=== PATIENT | male | born 1960 | race Caucasian/White ===

== ENCOUNTER 2019-06-25 07:52 | Outpatient (CLI) | payer BC ==
--- NOTE | 2019-06-25 08:25 | ULT ---
US Hepatic Doppler: 06/25/2019 12:00 AM CLINICAL HISTORY: Cirrhosis and portal hypertension. STUDY: Right upper quadrant ultrasound of liver. TECHNIQUE: Multiplanar grayscale and color Doppler images were obtained in a ultrasound of the right upper quadrant of the abdomen. Spectral analysis of the Doppler waveforms of the hepatic and splenic vessels were performed. COMPARISON: None. FINDINGS: Liver: Size: Normal. Echogenicity: Normal. Contour: Nodular consistent with cirrhosis. Mass: None. Bile ducts: No intrahepatic or extrahepatic biliary dilatation. Common bile duct measures 5 mm. Gallbladder: Normal. Pancreas: Head and body appear normal; tail obscured by bowel gas. Hepatic veins: Normal waveforms. Normal directional flow. Portable veins: Normal waveforms. Normal directional flow. Hepatic arteries: Normal waveforms. Normal directional flow. Splenic vein: Normal waveforms. Normal directional flow. Splenic artery: Normal waveforms. Normal directional flow. The spleen is normal in echogenicity without focal lesions and measures 17.8cm in length. IMPRESSION: Cirrhosis with splenomegaly
== END 2019-06-25 07:53 | disposition home or self-care (01) ==
LOC: BICULT 07:52
DX: K74.69 Other cirrhosis of liver (principal); E88.81 Metabolic syndrome and other insulin resistance; E13.9 Other specified diabetes mellitus without complications; R79.89 Other specified abnormal findings of blood chemistry; D73.2 Chronic congestive splenomegaly
CPT/HCPCS: 76705

== ENCOUNTER 2020-01-18 17:24 | Emergency (ER) | payer BC ==
[2020-01-18 18:50] LABS: ALT (SGPT) 24 U/L (8-55); AST (SGOT) 38 U/L (5-34); Albumin 3.5 g/dL (3.5-5.0); Alkaline Phosphatase 82 U/L (40-110); Anion Gap 14 mmol/L (10-20); BUN (Urea Nitrogen) 50 mg/dL (8.4-25.7); Bilirubin, Total 0.6 mg/dL (0.2-1.2); Calc. Creatinine Clearance 0 mL/min (70-130); Carbon Dioxide 24 mmol/L (22-29); Chloride 101 mmol/L (98-107); Estimated GFR-MDRD 25; Glucose 188 mg/dL (70-105); Magnesium 2.2 mg/dL (1.6-2.6); Potassium 4.7 mmol/L (3.5-5.1); Protein, Total 6.5 g/dL (6.0-8.3); Sodium 134 mmol/L (136-145)
[2020-01-18 19:52] LABS: Hemoglobin 8.9 g/dL (14.0-18.0); Mean Corpuscular HGB CONC 32.6 g/dL (32.0-36.0); Mean Corpuscular Hemoglobin 30.7 pg (27.0-31.0); Mean Corpuscular Volume 93.9 fL (78.0-98.0); Mean Platelet Volume 11.3 fL (7.4-10.4); Platelet Count 77 thou/uL (130-400); RBC Distribution Width 16.1 % (11.5-14.5); White Blood Cell (WBC) Count 3.7 thou/uL (4.8-10.8)
[2020-01-18 20:04] LABS: Band 2 % (5-11); Hypochromia SLIGHT = 6-15 cells (100X) (0-5/hpf); INR-International Normal Ratio 1.2; Lymphocytes 10 % (21-51); MDiff Complete? YES; Monocytes 11 % (0-10); Neutrophil 77 % (42-75); Platelet Morphology Comment Appears Decreased; Prothrombin Time 14.8 sec (12.0-14.7)
[2020-01-18 20:05] LABS: PTT 32.1 sec (22.9-36.1)
== END 2020-01-18 20:58 | disposition home or self-care (01) ==
LOC: ERS 17:24
DX: K71.7 Toxic liver disease with fibrosis and cirrhosis of liver (principal); T42.6X5A Adverse effect of other antiepileptic and sedative-hypnotic drugs, initial encounter; E11.9 Type 2 diabetes mellitus without complications; I12.0 Hypertensive chronic kidney disease with stage 5 chronic kidney disease or end stage renal disease; N18.6 End stage renal disease; Z79.4 Long term (current) use of insulin; Z79.82 Long term (current) use of aspirin; Z79.899 Other long term (current) drug therapy
CPT/HCPCS: 36415; 80053; 82140; 83735; 85025; 85610; 85730; 99284

== ENCOUNTER 2020-12-24 09:06 | Outpatient (CLI) | payer BC | END 2020-12-24 09:07 | disposition home or self-care (01) | LOC: BICULT 09:06 | PROVIDERS: ATTEND Internal Medicine Gastroenterology | DX: K22.70 Barrett's esophagus without dysplasia (principal); I85.00 Esophageal varices without bleeding; D64.9 Anemia, unspecified; K74.60 Unspecified cirrhosis of liver; R16.1 Splenomegaly, not elsewhere classified | CPT/HCPCS: 76705 ==

== ENCOUNTER 2021-10-26 09:25 | Outpatient (CLI) | payer BC | END 2021-10-26 09:26 | disposition home or self-care (01) | LOC: BICRAD 09:25 | PROVIDERS: ATTEND Physician Assistant Medical | DX: J90 Pleural effusion, not elsewhere classified (principal); N17.9 Acute kidney failure, unspecified; K74.60 Unspecified cirrhosis of liver; J98.11 Atelectasis | CPT/HCPCS: 36415; 71046; 80053; 82105; 85025; 85610 ==

== ENCOUNTER 2022-03-11 21:33 | Observation (INO) | payer BC ==
[2022-03-11 22:43] LABS: Hemoglobin 8.2 g/dL (14.0-18.0); Mean Corpuscular HGB CONC 31.4 g/dL (32.0-36.0); Mean Corpuscular Hemoglobin 27.8 pg (27.0-31.0); Mean Corpuscular Volume 88.6 fL (78.0-98.0); RBC Distribution Width 14.1 % (11.5-14.5); Red Blood Cell (RBC) Count 2.96 mill/uL (4.70-6.10); White Blood Cell (WBC) Count 6.1 thou/uL (4.8-10.8)
[2022-03-11 23:00] LABS: ALT (SGPT) 38 U/L (8-55); AST (SGOT) 62 U/L (5-34); Albumin 3.2 g/dL (3.4-4.8); Alkaline Phosphatase 82 U/L (40-110); Anion Gap 12 mmol/L (10-20); BUN (Urea Nitrogen) 44 mg/dL (8.4-25.7); Bilirubin, Total 0.9 mg/dL (0.2-1.2); Calc. Creatinine Clearance 0 mL/min (70-130); Calcium 8.5 mg/dL (7.8-10.44); Carbon Dioxide 27 mmol/L (23-31); Chloride 100 mmol/L (98-107); Estimated GFR 32; Globulin 2.8 g/dL (2.4-3.5); Glucose 171 mg/dL (80-115); Sodium 135 mmol/L (136-145)
[2022-03-11 23:05] LABS: Band 16 % (5-11); Lymphocytes 6 % (21-51); MDiff Complete? YES; Mean Platelet Volume 11.6 fL (7.4-10.4); Monocytes 12 % (0-10); Neutrophil 66 % (42-75); Platelet Count 65 thou/uL (130-400); Platelet Morphology Comment Appears Decreased; Schistocytes SLIGHT = 2-5 cells (100X) (0-1/hpf); Tear Drops SLIGHT = 2-5 cells (100X) (0-1/hpf)
[2022-03-12] MEDS ORDERED: cefTRIAXone\\ROCEPHIN 1 GM VIAL ONE (00:32)
[2022-03-12] MEDS ORDERED: Azithromycin 500 MG in Sodium Chloride 0.9% 250 ML 250 ML IVPB SCH (01:00)
[2022-03-12] MEDS ORDERED: Acetaminophen 325 MG TAB PO PRN (01:00)
[2022-03-12] MEDS ORDERED: Ondansetron PF 4 MG/2 ML Vial IVP PRN (01:00)
[2022-03-12] MEDS ORDERED: Ondansetron ODT 4 MG TAB SL PRN (01:00)
[2022-03-12] MEDS ORDERED: Azithromycin 500 MG VIAL ONE (01:10)
[2022-03-12] MEDS ORDERED: Dextrose 50% Abboject 50 ML SYRINGE SLOW IVP PRN (01:36)
[2022-03-12] MEDS ORDERED: Dextrose 5% in Water 1,000 ML IV PRN (01:36)
[2022-03-12] MEDS ORDERED: Senokot S 8.6-50 MG TAB PO PRN (01:37)
[2022-03-12] MEDS ORDERED: Furosemide 40 MG/4 ML VIAL SLOW IVP SCH (01:45)
[2022-03-12 01:47] LABS: SARS-CoV-2 NAA Rapid Test Not Detected (NotDetected)
[2022-03-12] MEDS: Acetaminophen 325 MG TAB PO PRN ×2 (02:33→20:46)
[2022-03-12 02:55] VITALS: BMI 37.0
[2022-03-12 04:40] LABS: ALT (SGPT) 32 U/L (8-55); AST (SGOT) 49 U/L (5-34); Albumin 2.9 g/dL (3.4-4.8); Alkaline Phosphatase 70 U/L (40-110); Anion Gap 13 mmol/L (10-20); BUN (Urea Nitrogen) 41 mg/dL (8.4-25.7); Bilirubin, Total 0.8 mg/dL (0.2-1.2); Calc. Creatinine Clearance 55 mL/min (70-130); Calcium 8.1 mg/dL (7.8-10.44); Carbon Dioxide 25 mmol/L (23-31); Chloride 99 mmol/L (98-107); Estimated GFR 32; Globulin 2.6 g/dL (2.4-3.5); Glucose 192 mg/dL (80-115); Magnesium 1.8 mg/dL (1.6-2.6); Potassium 3.8 mmol/L (3.5-5.1); Protein, Total 5.5 g/dL (5.8-8.1); Sodium 133 mmol/L (136-145)
[2022-03-12 05:44] LABS: Band 24 % (5-11); Elliptocytes SLIGHT = 2-5 cells (100X) (0-1/hpf); Hemoglobin 7.2 g/dL (14.0-18.0); Lymphocytes 2 % (21-51); MDiff Complete? YES; Mean Corpuscular HGB CONC 30.4 g/dL (32.0-36.0); Mean Corpuscular Hemoglobin 26.9 pg (27.0-31.0); Mean Corpuscular Volume 88.6 fL (78.0-98.0); Mean Platelet Volume 8.3 fL (7.4-10.4); Monocytes 12 % (0-10); Neutrophil 62 % (42-75); Platelet Count 54 thou/uL (130-400); Platelet Morphology Comment Appears Decreased; RBC Distribution Width 14.1 % (11.5-14.5); Red Blood Cell (RBC) Count 2.66 mill/uL (4.70-6.10); Schistocytes SLIGHT = 2-5 cells (100X) (0-1/hpf); Tear Drops SLIGHT = 2-5 cells (100X) (0-1/hpf); White Blood Cell (WBC) Count 5.5 thou/uL (4.8-10.8)
[2022-03-12] MEDS: HumaLOG 300 UNITS/3 ML VIAL SC PRN ×3 (06:27→17:13)
[2022-03-12 07:32] LABS: Bacteria/HPF None Seen HPF (None Seen); Bilirubin Negative (Negative); Blood, Urine Negative (Negative); Clarity Clear (Clear); Glucose, Urine (Dipstick) Normal (Negative); Ketone, Urine Negative (Negative); Leukocyte Negative Leu/uL (Negative); Nitrite Negative (Negative); Protein, Urine (Dipstick) Negative (Neg-Trace); RBC/HPF 0-3 HPF (0-3); Squamous Epithelial 0-3 HPF (0-3); Urobilinogen Normal mg/dL (Less than 2); WBC/HPF 0-3 HPF (0-3)
[2022-03-12] MEDS: Rifaximin 550 MG TAB PO SCH (09:25)
[2022-03-12] MEDS: Spironolactone 25 MG TAB PO SCH (14:40)
[2022-03-12] MEDS: Furosemide 40 MG/4 ML VIAL SLOW IVP SCH (14:40)
[2022-03-12] MEDS: Gabapentin 100 MG CAP PO SCH (20:47)
[2022-03-12] MEDS: cefTRIAXone\\ROCEPHIN 1 GM in Sodium Chloride 0.9% 100 ML IVPB SCH (21:31)
[2022-03-13] MEDS: Azithromycin 500 MG in Sodium Chloride 0.9% 250 ML 250 ML IVPB SCH (02:27)
[2022-03-13] MEDS: Furosemide 40 MG/4 ML VIAL SLOW IVP SCH (09:37)
[2022-03-13] MEDS: Rifaximin 550 MG TAB PO SCH (09:37)
[2022-03-13] MEDS: Spironolactone 25 MG TAB PO SCH (09:44)
[2022-03-13] MEDS: Gabapentin 100 MG CAP PO SCH (20:44)
[2022-03-13] MEDS: cefTRIAXone\\ROCEPHIN 1 GM in Sodium Chloride 0.9% 100 ML IVPB SCH (21:49)
[2022-03-14] MEDS: Azithromycin 500 MG in Sodium Chloride 0.9% 250 ML 250 ML IVPB SCH (02:54)
[2022-03-14 05:11] LABS: Anion Gap 15 mmol/L (10-20); BUN (Urea Nitrogen) 38 mg/dL (8.4-25.7); Calc. Creatinine Clearance 70 mL/min (70-130); Calcium 8.2 mg/dL (7.8-10.44); Carbon Dioxide 22 mmol/L (23-31); Chloride 102 mmol/L (98-107); Estimated GFR 42; Glucose 188 mg/dL (80-115); Potassium 3.8 mmol/L (3.5-5.1); Sodium 135 mmol/L (136-145)
[2022-03-14 06:35] LABS: Band 10 % (5-11); Elliptocytes SLIGHT = 2-5 cells (100X) (0-1/hpf); Eosinophils 3 % (0-10); Hemoglobin 7.4 g/dL (14.0-18.0); Lymphocytes 9 % (21-51); MDiff Complete? YES; Mean Corpuscular HGB CONC 30.4 g/dL (32.0-36.0); Mean Corpuscular Volume 88.9 fL (78.0-98.0); Monocytes 14 % (0-10); Neutrophil 64 % (42-75); Platelet Count 67 thou/uL (130-400); Red Blood Cell (RBC) Count 2.75 mill/uL (4.70-6.10); Schistocytes SLIGHT = 2-5 cells (100X) (0-1/hpf); Tear Drops SLIGHT = 2-5 cells (100X) (0-1/hpf); White Blood Cell (WBC) Count 2.8 thou/uL (4.8-10.8)
[2022-03-14 07:53] VITALS: BP 95/55; TEMP 97.8
[2022-03-14] MEDS: Rifaximin 550 MG TAB PO SCH (09:09)
[2022-03-14] MEDS: Spironolactone 25 MG TAB PO SCH (09:09)
[2022-03-14] MEDS: Furosemide 40 MG/4 ML VIAL SLOW IVP SCH (09:09)
== END 2022-03-14 11:13 | disposition home or self-care (01) ==
LOC: ERS 21:33 → 2NO 03-12 00:49
PROVIDERS: ADMIT Student in an Organized Health Care Education/Training Program; ATTEND Student in an Organized Health Care Education/Training Program
DX: J18.9 Pneumonia, unspecified organism (principal); I12.9 Hypertensive chronic kidney disease with stage 1 through stage 4 chronic kidney disease, or unspecified chronic kidney disease; E11.22 Type 2 diabetes mellitus with diabetic chronic kidney disease; N18.9 Chronic kidney disease, unspecified; N17.9 Acute kidney failure, unspecified; D63.1 Anemia in chronic kidney disease; K74.60 Unspecified cirrhosis of liver; R18.8 Other ascites; K76.6 Portal hypertension; I25.10 Atherosclerotic heart disease of native coronary artery without angina pectoris; E87.1 Hypo-osmolality and hyponatremia; Z79.4 Long term (current) use of insulin; Z79.82 Long term (current) use of aspirin; Z79.84 Long term (current) use of oral hypoglycemic drugs; Z79.899 Other long term (current) drug therapy; Z95.1 Presence of aortocoronary bypass graft; Z20.822 Contact with and (suspected) exposure to COVID-19
CPT/HCPCS: 36415; 36416; 71045; 80048; 80053; 81001; 83605; 83735; 83880; 84145; 85025; 87040; 93005; 96374; 96375; 96376; G0378; J0456; J0696; J1815; J1940; J3490; J7050; U0002

== ENCOUNTER 2022-09-20 08:51 | Outpatient (CLI) | payer BC | END 2022-09-20 08:52 | disposition home or self-care (01) | LOC: BICULT 08:51 | PROVIDERS: ATTEND Physician Assistant Medical | DX: D64.9 Anemia, unspecified (principal); K74.60 Unspecified cirrhosis of liver; R18.8 Other ascites; J90 Pleural effusion, not elsewhere classified | CPT/HCPCS: 76705 ==

== ENCOUNTER 2023-04-04 09:15 | Outpatient (CLI) | payer BC | END 2023-04-04 09:16 | disposition home or self-care (01) | LOC: ULT 09:15 | PROVIDERS: ATTEND Internal Medicine Gastroenterology | DX: K74.60 Unspecified cirrhosis of liver (principal); R16.1 Splenomegaly, not elsewhere classified; R18.8 Other ascites | CPT/HCPCS: 76705 ==

== ENCOUNTER 2023-07-15 06:19 | Day surgery (SDC) | payer BC ==
[2023-07-14 11:03] VITALS: BMI 41.3
[2023-07-15] MEDS ORDERED: Lidocaine 2% PF 5 ML VIAL ONE (06:57)
[2023-07-15] MEDS ORDERED: PROPOFOL 80 ML ONE (06:57)
[2023-07-15] MEDS ORDERED: Glycopyrrolate 0.2 MG/ML 5 ML SYRINGE ONE (07:31)
[2023-07-15] MEDS ORDERED: ePHEDrine Sulfate 50 MG/10 ML VIAL ONE (07:34)
[2023-07-15] MEDS ORDERED: PROPOFOL 20 ML ONE (08:41)
== END 2023-07-15 10:10 | disposition home or self-care (01) ==
LOC: SDC 06:19
PROVIDERS: ATTEND Internal Medicine Gastroenterology
PROC: 0DBL8ZZ Excision of Transverse Colon, Via Natural or Artificial Opening Endoscopic (ICD-10-PCS; principal; 2023-07-15)
PROC: 0W3P8ZZ Control Bleeding in Gastrointestinal Tract, Via Natural or Artificial Opening Endoscopic (ICD-10-PCS; principal; 2023-07-15)
PROC: 06L38CZ Occlusion of Esophageal Vein with Extraluminal Device, Via Natural or Artificial Opening Endoscopic (ICD-10-PCS; principal; 2023-07-15)
DX: D12.2 Benign neoplasm of ascending colon (principal); K57.30 Diverticulosis of large intestine without perforation or abscess without bleeding; K31.819 Angiodysplasia of stomach and duodenum without bleeding; I85.00 Esophageal varices without bleeding; K74.60 Unspecified cirrhosis of liver; D64.9 Anemia, unspecified; N28.9 Disorder of kidney and ureter, unspecified; E11.42 Type 2 diabetes mellitus with diabetic polyneuropathy; G47.33 Obstructive sleep apnea (adult) (pediatric); I25.10 Atherosclerotic heart disease of native coronary artery without angina pectoris; I25.2 Old myocardial infarction; Z79.899 Other long term (current) drug therapy
CPT/HCPCS: 36416; 88305; J2001; J2704

== ENCOUNTER 2023-07-27 07:37 | Day surgery (SDC) | payer BC ==
[2023-07-27] MEDS ORDERED: Lidocaine 1% PF 5 ML VIAL ONE (08:18)
[2023-07-27] MEDS ORDERED: Sodium Bicarbonate 2.5 MEQ/5 ML SDV ONE (08:18)
[2023-07-27 08:25] LABS: INR-International Normal Ratio 1.2; PTT 32.3 sec (22.9-36.1); Prothrombin Time 15.4 sec (12.0-14.7)
[2023-07-27 09:58] VITALS: BMI 40.6
[2023-07-27 10:00] VITALS: BP 96/58; TEMP 98.8
[2023-07-27 11:48] LABS: RBC Count-Automated (BF) 359 /cu.mm; WBC/Nucleated-Auto (BF) 458 /cu.mm
[2023-07-27 11:55] LABS: BF Color Yellow; Body Fluid Source Paracentesis Fluid; Clarity Hazy (Clear); Tube # EDTA
[2023-07-27 13:57] LABS: BF Segmented Neutrophils 2 %; Cell Count Non Hematic 73 %; Lymphocytes 25 %
[2023-07-27] MEDS ORDERED: FLU VACC QS2023-24(6MOS UP)/PF 60 MCG/0.5 ML SYRINGE IM ONE (14:00)
== END 2023-07-27 10:15 | disposition home or self-care (01) ==
LOC: ULT 07:37
PROVIDERS: ATTEND Physician Assistant Medical
PROC: 0W9G3ZZ Drainage of Peritoneal Cavity, Percutaneous Approach (ICD-10-PCS; principal; 2023-07-27)
DX: R18.8 Other ascites (principal); K31.819 Angiodysplasia of stomach and duodenum without bleeding; I85.00 Esophageal varices without bleeding; I25.10 Atherosclerotic heart disease of native coronary artery without angina pectoris; I10 Essential (primary) hypertension; I25.2 Old myocardial infarction; E11.9 Type 2 diabetes mellitus without complications; K21.9 Gastro-esophageal reflux disease without esophagitis; Z79.899 Other long term (current) drug therapy; Z95.1 Presence of aortocoronary bypass graft; Z79.84 Long term (current) use of oral hypoglycemic drugs
CPT/HCPCS: 36415; 49083; 82042; 84155; 85060; 85610; 85730; 87070; 87205; 89051

== ENCOUNTER 2023-09-09 10:13 | Inpatient (IN) | payer BC ==
[2023-09-09] MEDS ORDERED: Pantoprazole 40 MG VIAL ONE ×2 (10:31→10:52)
[2023-09-09] MEDS ORDERED: Sodium Chloride 0.9% 100 ML ONE (10:52)
[2023-09-09] MEDS ORDERED: cefTRIAXone (ROCEPHIN) 2 GM VIAL ONE (10:52)
[2023-09-09] MEDS ORDERED: Octreotide Acetate 500 MCG/ML VIAL ONE (10:52)
[2023-09-09] MEDS ORDERED: NOREPINEPHRINE 8 MG/250 ML-D5W 250 ML ONE (10:58)
[2023-09-09] MEDS ORDERED: EPINEPHrine 1 MG/10 ML Abboject SYRINGE ONE (10:58)
[2023-09-09] MEDS ORDERED: Octreotide Acetate 1,250 MCG in Sodium Chloride 0.9% 250 ML 250 ML IVPB SCH (11:00)
[2023-09-09] MEDS ORDERED: Ketamine In 0.9 % NaCl 50 MG/5 ML SYRINGE ONE (11:02)
[2023-09-09 11:14] LABS: #Basophils 0.1 thou/uL (0.0-0.2); #Eosinphils 0.1 thou/uL (0.0-0.7); #Monocytes 1.9 thou/uL (0.11-0.59); #Neutrophils 8.6 thou/uL (1.40-6.50); %Basophils 0.5 % (0.0-1.0); %Eosinophils 0.9 % (0.0-10.0); %Monocytes 16.2 % (0.0-10.0); %Neutrophils 73.7 % (42.0-75.0); Hematocrit 27.5 % (42.0-52.0); Hemoglobin 8.6 g/dL (14.0-18.0); Mean Corpuscular HGB CONC 31.3 g/dL (32.0-36.0); Mean Corpuscular Hemoglobin 32.1 pg (27.0-31.0); Mean Corpuscular Volume 102.6 fl (78.0-98.0); Mean Platelet Volume 12.5 fL (7.4-10.4); Platelet Count 153 10x3/uL (130-400); RBC Distribution Width 17.9 % (11.5-14.5); Red Blood Cell (RBC) Count 2.68 mill/uL (4.70-6.10); White Blood Cell (WBC) Count 11.7 10x3/uL (4.8-10.8)
[2023-09-09] MEDS ORDERED: Rocuronium Bromide 10 MG/ML (10ML VIAL) ONE ×2 (11:14→13:55)
[2023-09-09] MEDS ORDERED: Fentanyl CADD 100 ML IV SCH (11:15)
[2023-09-09] MEDS ORDERED: fentaNYL 50 mcg/mL 1 mL Vial ONE (11:17)
[2023-09-09 11:36] LABS: INR-International Normal Ratio 1.4; PTT 30.8 sec (22.9-36.1); Prothrombin Time 17.2 sec (12.0-14.7)
[2023-09-09 11:43] LABS: ALT (SGPT) 17 U/L (8-55); AST (SGOT) 34 U/L (5-34); Albumin 2.7 g/dL (3.4-4.8); Alkaline Phosphatase 54 U/L (40-110); Anion Gap 14 mmol/L (10-20); BUN (Urea Nitrogen) 53 mg/dL (8.4-25.7); Calc. Creatinine Clearance 0 mL/min (70-130); Calcium 8.5 mg/dL (7.8-10.44); Carbon Dioxide 26 mmol/L (23-31); Chloride 104 mmol/L (98-107); Estimated GFR 32; Globulin 2.4 g/dL (2.4-3.5); Glucose 199 mg/dL (80-115); Lipase 54 U/L (8-78); Potassium 5.9 mmol/L (3.5-5.1); Protein, Total 5.1 g/dL (5.8-8.1); Sodium 138 mmol/L (136-145)
[2023-09-09 12:05] LABS: Actual Bicarbonate (HCO3a) 25.1 mEq/L (22-28); Analyzer IN Cardio ER; Base Excess (BEa) 0.5 mEq/L (-2.0 to +3.0); CO2 Tension 39.8 mmHg (35.0-45.0); Calcium, Ionized (arterial) 1.05 mmol/L (1.12-1.30); Carboxyhemoglobin (COHb) 0.3 gm% (0.0-3.0); Hematocrit-ABG 28 % (42.0-52.0); Hemoglobin (Hb) 9.4 g/dL (14.0-18.0); O2 Tension (PaO2), arterial 321.7 mmHg (> 80.0); pH, Arterial 7.417 (7.35-7.45)
[2023-09-09 12:12] LABS: Potassium - ABG Lab 6.62 mmol/L (3.70-5.30); Puncture Site Left Radial
[2023-09-09] MEDS ORDERED: Pantoprazole 80 MG in Sodium Chloride 0.9% 100 ML IVPB SCH (13:00)
[2023-09-09] MEDS ORDERED: Ventilator Sedation Protocol 1 EACH FS SCH (13:15)
[2023-09-09] MEDS ORDERED: Fentanyl BOLUS 250 ML IVPB PRN (13:30)
[2023-09-09] MEDS ORDERED: DISCONTINUE PREVIOUS NARCOTIC PAIN MEDICATIONS AND BENZODIAZEPINES FS SCH (13:30)
[2023-09-09] MEDS ORDERED: Propofol BOLUS 1,000 MG/100 ML VIAL IV PRN (13:30)
[2023-09-09] MEDS ORDERED: ePHEDrine Sulfate 50 MG/10 ML VIAL ONE (13:37)
[2023-09-09 13:44] LABS: Bacteria/HPF None Seen HPF (None Seen); Bilirubin Negative (Negative); Blood, Urine Negative (Negative); CAUTI Indications for Culture Acute Hematuria; Clarity Clear (Clear); Glucose, Urine (Dipstick) 150 mg/dL (Negative); Ketone, Urine Negative (Negative); Leukocyte Negative Leu/uL (Negative); Nitrite Negative (Negative); Protein, Urine (Dipstick) Negative (Neg-Trace); RBC/HPF None Seen HPF (0-3); Specific Gravity, Urine 1.019 (1.002-1.036); Squamous Epithelial 0-3 HPF (0-3); Urobilinogen Normal mg/dL (Less than 2); WBC/HPF 0-3 HPF (0-3)
[2023-09-09 13:46] LABS: Urine Culture Reflex No No
[2023-09-09 14:23] LABS: #Monocytes 0.8 thou/uL (0.11-0.59); %Basophils 0.3 % (0.0-1.0); %Eosinophils 0.2 % (0.0-10.0); %Monocytes 8.1 % (0.0-10.0); %Neutrophils 84.8 % (42.0-75.0); Hematocrit 32.8 % (42.0-52.0); Hemoglobin 10.6 g/dL (14.0-18.0); Mean Corpuscular HGB CONC 32.3 g/dL (32.0-36.0); Mean Corpuscular Hemoglobin 31.2 pg (27.0-31.0); Mean Platelet Volume 12.3 fL (7.4-10.4); RBC Distribution Width 18.7 % (11.5-14.5); White Blood Cell (WBC) Count 9.5 10x3/uL (4.8-10.8)
[2023-09-09 14:26] LABS: Platelet Count 95 10x3/uL (130-400)
[2023-09-09 14:39] LABS: Mean Corpuscular Volume 96.5 fl (78.0-98.0)
[2023-09-09] MEDS: cefTRIAXone\\ROCEPHIN 1 GM in Sodium Chloride 0.9% 100 ML IVPB SCH (15:00)
[2023-09-09] MEDS: Morphine 2 MG/ML VIAL SLOW IVP PRN (15:20)
[2023-09-09] MEDS: Propofol 1,000 MG/100 ML VIAL IV PRN (15:20)
[2023-09-09] MEDS: Sodium Chloride 0.9% 1,000 ML IV SCH (15:26)
[2023-09-09 16:13] LABS: #Monocytes 0.8 thou/uL (0.11-0.59); #Neutrophils 6.7 thou/uL (1.40-6.50); %Basophils 0.4 % (0.0-1.0); %Eosinophils 0.1 % (0.0-10.0); %Lymphocytes 5.2 % (21.0-51.0); %Monocytes 9.7 % (0.0-10.0); Hematocrit 30.1 % (42.0-52.0); Mean Corpuscular HGB CONC 33.2 g/dL (32.0-36.0); Mean Corpuscular Hemoglobin 31.1 pg (27.0-31.0); Mean Platelet Volume 12.9 fL (7.4-10.4); RBC Distribution Width 18.9 % (11.5-14.5); Red Blood Cell (RBC) Count 3.22 mill/uL (4.70-6.10)
[2023-09-09 16:16] LABS: Mean Corpuscular Volume 93.5 fl (78.0-98.0); Platelet Count 92 10x3/uL (130-400)
[2023-09-09 16:31] LABS: Lactic Acid 1.5 mmol/L (0.5-2.2)
[2023-09-09] MEDS ORDERED: LOKELMA 10 GM PACKET PER TUBE SCH (17:00)
[2023-09-09 17:22] LABS: Albumin 2.9 g/dL (3.4-4.8); Anion Gap 16 mmol/L (10-20); Calcium 7.9 mg/dL (7.8-10.44); Carbon Dioxide 23 mmol/L (23-31); Chloride 105 mmol/L (98-107); Globulin 2.3 g/dL (2.4-3.5); Glucose 232 mg/dL (80-115); Protein, Total 5.2 g/dL (5.8-8.1); Sodium 137 mmol/L (136-145)
[2023-09-09] MEDS: Sodium Polystyrene Sulfonate 15 GM (60 mL) BOT PR SCH (17:22)
[2023-09-09 17:23] LABS: ALT (SGPT) 19 U/L (8-55); AST (SGOT) 34 U/L (5-34); Alkaline Phosphatase 65 U/L (40-110); BUN (Urea Nitrogen) 58 mg/dL (8.4-25.7); Bilirubin, Total 1.8 mg/dL (0.2-1.2); Calc. Creatinine Clearance 0 mL/min (70-130); Critical Call Chemistry ICU.VW @ 1649; Estimated GFR 35; Magnesium 1.8 mg/dL (1.6-2.6); Potassium 6.5 mmol/L (3.5-5.1)
[2023-09-09] MEDS: Lorazepam 2 MG/ML VIAL SLOW IVP PRN (18:02)
[2023-09-09] MEDS: FLU VACC QS2023-24(6MOS UP)/PF 60 MCG/0.5 ML SYRINGE IM ONE (18:30)
[2023-09-09] MEDS ORDERED: NOREPINEPHRINE 8 MG/250 ML-D5W 250 ML IVPB SCH (19:45)
[2023-09-09 20:53] LABS: Hematocrit 27.3 % (42.0-52.0); Hemoglobin 9.1 g/dL (14.0-18.0)
[2023-09-09 22:58] LABS: Anion Gap 14 mmol/L (10-20); BUN (Urea Nitrogen) 54 mg/dL (8.4-25.7); Calc. Creatinine Clearance 62 mL/min (70-130); Calcium 8.1 mg/dL (7.8-10.44); Carbon Dioxide 24 mmol/L (23-31); Chloride 108 mmol/L (98-107); Estimated GFR 33; Glucose 189 mg/dL (80-115); Potassium 4.9 mmol/L (3.5-5.1); Sodium 141 mmol/L (136-145)
[2023-09-10 04:04] LABS: #Monocytes 0.9 thou/uL (0.11-0.59); #Neutrophils 6.2 thou/uL (1.40-6.50); %Basophils 0.3 % (0.0-1.0); %Eosinophils 0.5 % (0.0-10.0); %Monocytes 11.7 % (0.0-10.0); Hematocrit 26.9 % (42.0-52.0); Hemoglobin 8.8 g/dL (14.0-18.0); Mean Corpuscular HGB CONC 32.7 g/dL (32.0-36.0); Mean Corpuscular Hemoglobin 31.4 pg (27.0-31.0); Mean Corpuscular Volume 96.1 fl (78.0-98.0); Mean Platelet Volume 13.8 fL (7.4-10.4); White Blood Cell (WBC) Count 7.6 10x3/uL (4.8-10.8)
[2023-09-10 04:10] LABS: Platelet Count 64 10x3/uL (130-400)
[2023-09-10 04:14] LABS: INR-International Normal Ratio 1.4; Prothrombin Time 16.8 sec (12.0-14.7)
[2023-09-10 04:29] LABS: ALT (SGPT) 15 U/L (8-55); AST (SGOT) 27 U/L (5-34); Albumin 2.7 g/dL (3.4-4.8); Alkaline Phosphatase 62 U/L (40-110); Anion Gap 16 mmol/L (10-20); BUN (Urea Nitrogen) 54 mg/dL (8.4-25.7); Bilirubin, Total 1.3 mg/dL (0.2-1.2); Calc. Creatinine Clearance 61 mL/min (70-130); Calcium 8.2 mg/dL (7.8-10.44); Carbon Dioxide 22 mmol/L (23-31); Chloride 107 mmol/L (98-107); Estimated GFR 33; Globulin 2.2 g/dL (2.4-3.5); Glucose 213 mg/dL (80-115); Potassium 4.9 mmol/L (3.5-5.1); Protein, Total 4.9 g/dL (5.8-8.1); Sodium 140 mmol/L (136-145)
[2023-09-10 07:59] LABS: Actual Bicarbonate (HCO3a) 22.6 mEq/L (22-28); Base Excess (BEa) -0.9 mEq/L (-2.0 to +3.0); CO2 Tension 32.8 mmHg (35.0-45.0); Calcium, Ionized (arterial) 1.08 mmol/L (1.12-1.30); Hematocrit-ABG 27 % (42.0-52.0); Hemoglobin (Hb) 9.3 g/dL (14.0-18.0); Potassium - ABG Lab 4.49 mmol/L (3.70-5.30); pH, Arterial 7.456 (7.35-7.45)
[2023-09-10 08:04] LABS: O2 Tension (PaO2), arterial 57.1 mmHg (> 80.0); Puncture Site LBA
[2023-09-10] MEDS: Furosemide 40 MG (4 mL) VIAL SLOW IVP SCH (10:36)
[2023-09-10] MEDS: Octreotide Acetate 1,250 MCG in Sodium Chloride 0.9% 250 ML 250 ML IVPB SCH (10:36)
[2023-09-10] MEDS: Pantoprazole 40 MG VIAL IVP SCH (20:34)
[2023-09-11 05:07] LABS: #Eosinphils 0.1 thou/uL (0.0-0.7); #Monocytes 0.6 thou/uL (0.11-0.59); %Basophils 0.2 % (0.0-1.0); %Eosinophils 2.7 % (0.0-10.0); %Lymphocytes 7.5 % (21.0-51.0); %Monocytes 14.7 % (0.0-10.0); %Neutrophils 74.7 % (42.0-75.0); Hematocrit 23.8 % (42.0-52.0); Hemoglobin 7.9 g/dL (14.0-18.0); Mean Corpuscular HGB CONC 33.2 g/dL (32.0-36.0); Mean Corpuscular Hemoglobin 31.9 pg (27.0-31.0); Mean Platelet Volume 12.6 fL (7.4-10.4); RBC Distribution Width 19.5 % (11.5-14.5); Red Blood Cell (RBC) Count 2.48 mill/uL (4.70-6.10)
[2023-09-11 05:10] LABS: Platelet Count 53 10x3/uL (130-400)
[2023-09-11 05:27] LABS: Anion Gap 12 mmol/L (10-20); BUN (Urea Nitrogen) 62 mg/dL (8.4-25.7); Calc. Creatinine Clearance 60 mL/min (70-130); Carbon Dioxide 24 mmol/L (23-31); Chloride 108 mmol/L (98-107); Estimated GFR 32; Glucose 192 mg/dL (80-115); Sodium 140 mmol/L (136-145)
[2023-09-11 08:17] LABS: Base Excess (BEa) -0.2 mEq/L (-2.0 to +3.0); CO2 Tension 31.7 mmHg (35.0-45.0); Carboxyhemoglobin (COHb) 0.7 gm% (0.0-3.0); Hematocrit-ABG 26 % (42.0-52.0); Hemoglobin (Hb) 8.8 g/dL (14.0-18.0); O2 Tension (PaO2), arterial 64.9 mmHg (> 80.0); pH, Arterial 7.479 (7.35-7.45)
[2023-09-11 08:18] LABS: ALV-art Gradient 180.675 mmHg (0-20); Analyzer IN Cardio OR; Calcium, Ionized (arterial) 1.05 mmol/L (1.12-1.30); Potassium - ABG Lab 3.83 mmol/L (3.70-5.30); Puncture Site RRA
[2023-09-11] MEDS: Furosemide 40 MG (4 mL) VIAL SLOW IVP SCH (20:46)
[2023-09-12 04:38] LABS: #Eosinphils 0.1 thou/uL (0.0-0.7); #Monocytes 0.5 thou/uL (0.11-0.59); #Neutrophils 2.5 thou/uL (1.40-6.50); %Basophils 0.3 % (0.0-1.0); %Eosinophils 4.1 % (0.0-10.0); %Lymphocytes 7.7 % (21.0-51.0); %Monocytes 14.2 % (0.0-10.0); %Neutrophils 73.1 % (42.0-75.0); Hematocrit 25.1 % (42.0-52.0); Mean Corpuscular HGB CONC 31.9 g/dL (32.0-36.0); Mean Corpuscular Hemoglobin 31.4 pg (27.0-31.0); Mean Corpuscular Volume 98.4 fl (78.0-98.0); Mean Platelet Volume 13.3 fL (7.4-10.4); RBC Distribution Width 18.5 % (11.5-14.5); Red Blood Cell (RBC) Count 2.55 mill/uL (4.70-6.10); White Blood Cell (WBC) Count 3.4 10x3/uL (4.8-10.8)
[2023-09-12 04:43] LABS: Platelet Count 55 10x3/uL (130-400)
[2023-09-12 04:59] LABS: Anion Gap 16 mmol/L (10-20); BUN (Urea Nitrogen) 62 mg/dL (8.4-25.7); Calc. Creatinine Clearance 56 mL/min (70-130); Calcium 8.2 mg/dL (7.8-10.44); Carbon Dioxide 25 mmol/L (23-31); Chloride 106 mmol/L (98-107); Estimated GFR 30; Glucose 183 mg/dL (80-115); Potassium 3.7 mmol/L (3.5-5.1); Sodium 143 mmol/L (136-145)
[2023-09-12 07:19] LABS: Actual Bicarbonate (HCO3a) 25.2 mEq/L (22-28); Base Excess (BEa) 1.7 mEq/L (-2.0 to +3.0); Calcium, Ionized (arterial) 1.08 mmol/L (1.12-1.30); Carboxyhemoglobin (COHb) 0.8 gm% (0.0-3.0); Hematocrit-ABG 27 % (42.0-52.0); Hemoglobin (Hb) 9.1 g/dL (14.0-18.0); O2 Tension (PaO2), arterial 72.5 mmHg (> 80.0); Potassium - ABG Lab 3.78 mmol/L (3.70-5.30); pH, Arterial 7.475 (7.35-7.45)
[2023-09-12 07:20] LABS: Puncture Site LBA
[2023-09-12] MEDS ORDERED: Dextrose 5% in Water 1,000 ML IV PRN (09:15)
[2023-09-12] MEDS ORDERED: Glucagon 1 MG/ML KIT IM PRN (09:15)
[2023-09-12] MEDS ORDERED: Dextrose 50% Abboject 50 ML SYRINGE IVP PRN (09:15)
[2023-09-12] MEDS: Insulin Glargine 30 UNITS/0.3 ML VIAL SC SCH (09:31)
[2023-09-12] MEDS: HumaLOG 300 UNITS/3 ML VIAL SC PRN (09:39)
[2023-09-12] MEDS: Rifaximin 550 MG TAB PO SCH (22:22)
[2023-09-13] MEDS: Morphine 2 MG/ML VIAL SLOW IVP PRN (01:16)
[2023-09-13] MEDS: DC Sedation Protocol FS ONE (01:18)
[2023-09-13 06:24] LABS: #Eosinphils 0.2 thou/uL (0.0-0.7); #Monocytes 0.8 thou/uL (0.11-0.59); #Neutrophils 2.9 thou/uL (1.40-6.50); %Basophils 0.5 % (0.0-1.0); %Eosinophils 4.2 % (0.0-10.0); %Lymphocytes 7.5 % (21.0-51.0); %Monocytes 18.2 % (0.0-10.0); %Neutrophils 69.1 % (42.0-75.0); Hematocrit 28.1 % (42.0-52.0); Hemoglobin 8.9 g/dL (14.0-18.0); Mean Corpuscular HGB CONC 31.7 g/dL (32.0-36.0); Mean Corpuscular Hemoglobin 31.4 pg (27.0-31.0); Mean Corpuscular Volume 99.3 fl (78.0-98.0); Mean Platelet Volume 13.4 fL (7.4-10.4); RBC Distribution Width 17.6 % (11.5-14.5); Red Blood Cell (RBC) Count 2.83 mill/uL (4.70-6.10); White Blood Cell (WBC) Count 4.2 10x3/uL (4.8-10.8)
[2023-09-13 06:27] LABS: Platelet Count 64 10x3/uL (130-400)
[2023-09-13 06:36] LABS: ALT (SGPT) 15 U/L (8-55); AST (SGOT) 26 U/L (5-34); Alkaline Phosphatase 70 U/L (40-110); Anion Gap 16 mmol/L (10-20); BUN (Urea Nitrogen) 61 mg/dL (8.4-25.7); Bilirubin, Total 0.8 mg/dL (0.2-1.2); Calc. Creatinine Clearance 53 mL/min (70-130); Calcium 8.6 mg/dL (7.8-10.44); Carbon Dioxide 26 mmol/L (23-31); Chloride 107 mmol/L (98-107); Estimated GFR 29; Globulin 2.6 g/dL (2.4-3.5); Glucose 174 mg/dL (80-115); Potassium 3.8 mmol/L (3.5-5.1); Protein, Total 5.6 g/dL (5.8-8.1); Sodium 145 mmol/L (136-145)
[2023-09-13] MEDS: Insulin Glargine 30 UNITS/0.3 ML VIAL SC SCH (08:27)
[2023-09-14] MEDS: Gabapentin 100 MG CAP PO SCH ×2 (00:27→13:40)
[2023-09-14 06:35] LABS: Hematocrit 27.7 % (42.0-52.0); Hemoglobin 8.8 g/dL (14.0-18.0); Manual Diff?? YES; Mean Corpuscular HGB CONC 31.8 g/dL (32.0-36.0); Mean Corpuscular Hemoglobin 31.2 pg (27.0-31.0); Mean Corpuscular Volume 98.2 fl (78.0-98.0); Mean Platelet Volume 11.9 fL (7.4-10.4); RBC Distribution Width 16.5 % (11.5-14.5); Red Blood Cell (RBC) Count 2.82 mill/uL (4.70-6.10); White Blood Cell (WBC) Count 3.7 10x3/uL (4.8-10.8)
[2023-09-14 06:41] LABS: Delete Auto Diff?? YES; Platelet Count 63 10x3/uL (130-400)
[2023-09-14 06:46] LABS: ALT (SGPT) 13 U/L (8-55); AST (SGOT) 24 U/L (5-34); Alkaline Phosphatase 66 U/L (40-110); Anion Gap 13 mmol/L (10-20); BUN (Urea Nitrogen) 55 mg/dL (8.4-25.7); Bilirubin, Total 0.9 mg/dL (0.2-1.2); Calc. Creatinine Clearance 56 mL/min (70-130); Calcium 8.4 mg/dL (7.8-10.44); Carbon Dioxide 29 mmol/L (23-31); Chloride 101 mmol/L (98-107); Estimated GFR 31; Globulin 2.6 g/dL (2.4-3.5); Glucose 169 mg/dL (80-115); Potassium 3.6 mmol/L (3.5-5.1); Protein, Total 5.6 g/dL (5.8-8.1); Sodium 139 mmol/L (136-145)
[2023-09-14 06:55] LABS: INR-International Normal Ratio 1.3; Prothrombin Time 15.8 sec (12.0-14.7)
[2023-09-14] MEDS: Furosemide 40 MG TAB PO SCH (07:29)
[2023-09-14 07:38] LABS: Band 8 % (5-11); CellaVision Operator ID LAB.KW3; Eosinophils 8 % (0-10); Hypochromia SLIGHT = 6-15 cells HPF (0-5); Large Platelets 3.8 % (0-5); Monocytes 4 % (0-10); Neutrophil 77 % (42-75); Platelet Adequacy Comment Significant decrease; Polychromasia MODERATE = 3-4 cells HPF (0-2); Total Cell Count 26
[2023-09-14] MEDS ORDERED: Acetaminophen 325 MG TAB PO PRN (09:14)
[2023-09-15 05:27] LABS: Hemoglobin 8.5 g/dL (14.0-18.0); Manual Diff?? YES; Mean Corpuscular HGB CONC 31.5 g/dL (32.0-36.0); Mean Corpuscular Hemoglobin 30.6 pg (27.0-31.0); Mean Corpuscular Volume 97.1 fl (78.0-98.0); Mean Platelet Volume 12.6 fL (7.4-10.4); Red Blood Cell (RBC) Count 2.78 mill/uL (4.70-6.10); White Blood Cell (WBC) Count 4.5 10x3/uL (4.8-10.8)
[2023-09-15 05:28] LABS: Delete Auto Diff?? YES; Platelet Count 65 10x3/uL (130-400)
[2023-09-15 05:47] LABS: ALT (SGPT) 14 U/L (8-55); AST (SGOT) 26 U/L (5-34); Albumin 2.9 g/dL (3.4-4.8); Alkaline Phosphatase 63 U/L (40-110); Anion Gap 14 mmol/L (10-20); BUN (Urea Nitrogen) 50 mg/dL (8.4-25.7); Bilirubin, Total 0.8 mg/dL (0.2-1.2); Calc. Creatinine Clearance 53 mL/min (70-130); Calcium 8.4 mg/dL (7.8-10.44); Carbon Dioxide 29 mmol/L (23-31); Chloride 97 mmol/L (98-107); Estimated GFR 30; Globulin 2.5 g/dL (2.4-3.5); Glucose 204 mg/dL (80-115); Potassium 3.8 mmol/L (3.5-5.1); Protein, Total 5.4 g/dL (5.8-8.1); Sodium 136 mmol/L (136-145)
[2023-09-15 06:04] LABS: Anisocytosis SLIGHT = 6-15 cells HPF (0-5); Band 9 % (5-11); CellaVision Operator ID LAB.CLH1; Eosinophils 2 % (0-10); Hypochromia SLIGHT = 6-15 cells HPF (0-5); Large Platelets 5.1 % (0-5); Lymphocytes 3 % (21-51); Monocytes 11 % (0-10); Neutrophil 74 % (42-75); Platelet Adequacy Comment Platelets Decreased; Polychromasia SLIGHT = 2-3 cells HPF (0-2); Total Cell Count 99
[2023-09-15] MEDS: Atorvastatin Calcium 20 MG TAB PO SCH (09:12)
[2023-09-15] MEDS: Nadolol 40 MG TAB PO SCH (09:12)
[2023-09-15 13:23] VITALS: BMI 34.0
[2023-09-15] MEDS: HumaLOG 300 UNITS/3 ML VIAL SC PRN (21:21)
[2023-09-16 13:12] VITALS: BP 116/58; TEMP 97.6
== END 2023-09-16 12:45 | disposition home or self-care (01) | DRG 432 ==
LOC: ERS 10:13 → CCU 11:41 → T4-B 09-13 18:38
PROVIDERS: ADMIT Internal Medicine; ATTEND Internal Medicine
PROC: 06L28CZ Occlusion of Gastric Vein with Extraluminal Device, Via Natural or Artificial Opening Endoscopic (ICD-10-PCS; principal; 2023-09-09)
PROC: 30243L1 Transfusion of Nonautologous Fresh Plasma into Central Vein, Percutaneous Approach (ICD-10-PCS; 2023-09-09)
PROC: 30243N1 Transfusion of Nonautologous Red Blood Cells into Central Vein, Percutaneous Approach (ICD-10-PCS; 2023-09-09)
PROC: 5A1945Z Respiratory Ventilation, 24-96 Consecutive Hours (ICD-10-PCS; 2023-09-09)
PROC: 5A0935A Assistance with Respiratory Ventilation, Less than 24 Consecutive Hours, High Flow/Velocity Cannula (ICD-10-PCS; 2023-09-12)
DX: K74.60 Unspecified cirrhosis of liver (principal); I85.11 Secondary esophageal varices with bleeding; R57.1 Hypovolemic shock; J96.01 Acute respiratory failure with hypoxia; D62 Acute posthemorrhagic anemia; K76.6 Portal hypertension; J91.8 Pleural effusion in other conditions classified elsewhere; E11.22 Type 2 diabetes mellitus with diabetic chronic kidney disease; I25.10 Atherosclerotic heart disease of native coronary artery without angina pectoris; K76.82 Hepatic encephalopathy; K21.9 Gastro-esophageal reflux disease without esophagitis; G47.33 Obstructive sleep apnea (adult) (pediatric); N18.30 Chronic kidney disease, stage 3 unspecified; K75.81 Nonalcoholic steatohepatitis (NASH); I86.4 Gastric varices; K72.10 Chronic hepatic failure without coma; E87.5 Hyperkalemia; K31.89 Other diseases of stomach and duodenum; Z79.4 Long term (current) use of insulin; Z79.899 Other long term (current) drug therapy
CPT/HCPCS: 31500; 36415; 36416; 36430; 36600; 51702; 71045; 80048; 80053; 81001; 82728; 82805; 83540; 83550; 83605; 83690; 83735; 83880; 84100; 85025; 85610; 85730; 86850; 86900; 86901; 87040; 87086; 93005; 94002; 94003; 94760; 96365; 96366; 96375; 96376; C9113; J0171; J0696; J1815; J1940; J2060; J2272; J2354; J2704; J3010; J3490; J7050; P9016; P9048

== ENCOUNTER 2024-04-05 14:13 | Inpatient (IN) | payer MEDICARE ==
[2024-04-05 15:20] LABS: ALT (SGPT) 23 U/L (8-55); AST (SGOT) 30 U/L (5-34); Albumin 3.2 g/dL (3.4-4.8); Alkaline Phosphatase 95 U/L (40-110); Anion Gap 14 mmol/L (10-20); BUN (Urea Nitrogen) 46 mg/dL (8.4-25.7); Calc. Creatinine Clearance 0 mL/min (70-130); Carbon Dioxide 26 mmol/L (23-31); Chloride 106 mmol/L (98-107); Estimated GFR 25; Globulin 3.2 g/dL (2.4-3.5); Glucose 194 mg/dL (80-115); Potassium 4.4 mmol/L (3.5-5.1); Protein, Total 6.4 g/dL (5.8-8.1); Sodium 142 mmol/L (136-145)
[2024-04-05 15:31] LABS: #Basophils Less than 0.03 10x3/uL (0.0-0.2); #Eosinophils Less than 0.03 10x3/uL (0.0-0.7); %Basophils 0.4 % (0.0-1.0); %Eosinophils 0.4 % (0.0-10.0); %Lymphocytes 4.2 % (21.0-51.0); %Monocytes 12.4 % (0.0-10.0); %Neutrophils 81.8 % (42.0-75.0); Hematocrit 29.9 % (42.0-52.0); Hemoglobin 9.1 g/dL (14.0-18.0); Mean Corpuscular HGB CONC 30.4 g/dL (32.0-36.0); Mean Corpuscular Volume 105.3 fL (78.0-98.0); Platelet Count 81 10x3/uL (130-400); RBC Distribution Width 22.3 % (11.5-14.5); Red Blood Cell (RBC) Count 2.84 mill/uL (4.70-6.10)
[2024-04-05 15:45] LABS: Lipase 49 U/L (8-78)
[2024-04-05 15:47] LABS: Acetaminophen Less than 10 mcg/mL (Less than 10); Alcohol Less than 10.0 mg/dL (Less than 10); Salicylate Less than 8.0 mg/dL (Less than 8.0)
[2024-04-05] MEDS ORDERED: Lactulose 20 GM (30 mL) UDCUP ONE (16:14)
[2024-04-05] MEDS ORDERED: Ondansetron ODT 4 MG TAB PO PRN (18:16)
[2024-04-05] MEDS ORDERED: Ondansetron PF 4 MG/2 ML Vial IVP PRN (18:16)
[2024-04-05] MEDS ORDERED: Dextrose 5% in Water 1,000 ML IV PRN (18:36)
[2024-04-05] MEDS ORDERED: Glucagon 1 MG/ML KIT IM PRN (18:36)
[2024-04-05] MEDS ORDERED: Dextrose 50% Abboject 50 ML SYRINGE SLOW IVP PRN (18:36)
[2024-04-05] MEDS ORDERED: Pantoprazole 40 MG VIAL ONE (19:26)
[2024-04-05] MEDS ORDERED: Albumin 25% 100 ML ONE (19:26)
[2024-04-05] MEDS: Pantoprazole 80 MG, Admixture Fee 1 EACH in Sodium Chloride 0.9% 100 ML IVPB SCH (20:00)
[2024-04-05] MEDS: Pantoprazole 40 MG VIAL IVP SCH (20:00)
[2024-04-05] MEDS: Albumin 25% 25 GM (100 mL) BOT IVPB SCH (20:00)
[2024-04-05] MEDS ORDERED: Sodium Chloride 0.9% 100 ML ONE (20:46)
[2024-04-05] MEDS ORDERED: cefTRIAXone (ROCEPHIN) 1 GM VIAL ONE (20:46)
[2024-04-05] MEDS: cefTRIAXone\\ROCEPHIN 1 GM in Sodium Chloride 0.9% 100 ML IVPB SCH (20:50)
[2024-04-05 22:02] LABS: Hemoglobin 8.1 g/dL (14.0-18.0)
[2024-04-05 22:14] LABS: INR-International Normal Ratio 1.3; PTT 29.4 sec (22.9-36.1); Prothrombin Time 16.3 sec (12.0-14.7)
[2024-04-05 22:26] VITALS: BMI 37.0
[2024-04-05] MEDS: Octreotide Acetate 50 MCG/ML AMP SLOW IVP SCH (22:55)
[2024-04-05] MEDS: Octreotide Acetate 500 MCG/ML VIAL SLOW IVP SCH (22:59)
[2024-04-05] MEDS: Octreotide Acetate 1,250 MCG in Sodium Chloride 0.9% 250 ML 250 ML IVPB SCH (22:59)
[2024-04-05] MEDS: Gabapentin 100 MG CAP PO SCH (23:46)
[2024-04-06 00:57] LABS: Hematocrit 25.2 % (42.0-52.0); Hemoglobin 7.7 g/dL (14.0-18.0)
[2024-04-06 00:57] LABS: Bacteria/HPF None Seen HPF (None Seen); Bilirubin Negative (Negative); Blood, Urine Negative (Negative); CAUTI Indications for Culture Alt mental st,lethar; Clarity Clear (Clear); Glucose, Urine (Dipstick) Normal (Negative); Ketone, Urine Negative (Negative); Leukocyte Negative Leu/uL (Negative); Nitrite Negative (Negative); Protein, Urine (Dipstick) Negative (Neg-Trace); RBC/HPF 0-3 HPF (0-3); Specific Gravity, Urine 1.016 (1.002-1.036); Squamous Epithelial 0-3 HPF (0-3); Urobilinogen 3 mg/dL (Less than 2); WBC/HPF None Seen HPF (0-3); pH, Urine 6.5 (5.0-9.0)
[2024-04-06 01:14] LABS: Urine Culture Reflex No No
[2024-04-06 04:03] LABS: #Basophils Less than 0.03 10x3/uL (0.0-0.2); %Basophils 0.6 % (0.0-1.0); %Eosinophils 3.1 % (0.0-10.0); %Lymphocytes 7.8 % (21.0-51.0); %Neutrophils 72.9 % (42.0-75.0); Hemoglobin 7.6 g/dL (14.0-18.0); Mean Corpuscular HGB CONC 30.4 g/dL (32.0-36.0); Mean Corpuscular Hemoglobin 31.8 pg (27.0-31.0); Mean Corpuscular Volume 104.6 fL (78.0-98.0); Platelet Count 65 10x3/uL (130-400); Red Blood Cell (RBC) Count 2.39 mill/uL (4.70-6.10)
[2024-04-06 04:06] LABS: Anion Gap 12 mmol/L (10-20); BUN (Urea Nitrogen) 40 mg/dL (8.4-25.7); Calc. Creatinine Clearance 51 mL/min (70-130); Calcium 8.7 mg/dL (7.8-10.44); Carbon Dioxide 25 mmol/L (23-31); Chloride 108 mmol/L (98-107); Estimated GFR 29; Glucose 129 mg/dL (80-115); Potassium 4.8 mmol/L (3.5-5.1); Sodium 140 mmol/L (136-145)
[2024-04-06 08:07] LABS: Hematocrit 26.2 % (42.0-52.0); Hemoglobin 8.1 g/dL (14.0-18.0)
[2024-04-06] MEDS: Gabapentin 100 MG CAP PO SCH (10:20)
[2024-04-06] MEDS: FLU (Fluad Triv) TS24-25 (65UP)/MF59C/PF 45 MCG/0.5 ML Syringe IM ONE (10:37)
[2024-04-06] MEDS: Albumin 25% 25 GM (100 mL) BOT IVPB SCH (13:25)
[2024-04-06] MEDS: Insulin Lispro 100 UNIT/ML 10 ML VIAL SC PRN (17:59)
[2024-04-06] MEDS: cefTRIAXone\\ROCEPHIN 1 GM in Sodium Chloride 0.9% 100 ML IVPB SCH (20:48)
[2024-04-06] MEDS: Rifaximin 200 MG TAB PO SCH (20:48)
[2024-04-07 04:08] LABS: #Basophils Less than 0.03 10x3/uL (0.0-0.2); %Basophils 0.7 % (0.0-1.0); %Eosinophils 2.7 % (0.0-10.0); %Lymphocytes 7.1 % (21.0-51.0); %Monocytes 13.5 % (0.0-10.0); %Neutrophils 75.3 % (42.0-75.0); Hematocrit 22.6 % (42.0-52.0); Hemoglobin 6.8 g/dL (14.0-18.0); Mean Corpuscular HGB CONC 30.1 g/dL (32.0-36.0); Mean Corpuscular Hemoglobin 32.7 pg (27.0-31.0); Mean Corpuscular Volume 108.7 fL (78.0-98.0); Mean Platelet Volume 13.2 fL (7.4-10.4); Platelet Count 64 10x3/uL (130-400); RBC Distribution Width 20.9 % (11.5-14.5); Red Blood Cell (RBC) Count 2.08 mill/uL (4.70-6.10)
[2024-04-07 04:14] LABS: ALT (SGPT) 14 U/L (8-55); AST (SGOT) 24 U/L (5-34); Albumin 3.5 g/dL (3.4-4.8); Alkaline Phosphatase 64 U/L (40-110); Anion Gap 11 mmol/L (10-20); BUN (Urea Nitrogen) 38 mg/dL (8.4-25.7); Bilirubin, Total 0.8 mg/dL (0.2-1.2); Calc. Creatinine Clearance 50 mL/min (70-130); Calcium 8.5 mg/dL (7.8-10.44); Carbon Dioxide 25 mmol/L (23-31); Chloride 109 mmol/L (98-107); Estimated GFR 29; Globulin 1.9 g/dL (2.4-3.5); Glucose 170 mg/dL (80-115); Potassium 4.5 mmol/L (3.5-5.1); Protein, Total 5.4 g/dL (5.8-8.1); Sodium 140 mmol/L (136-145)
[2024-04-07] MEDS ORDERED: PROPOFOL 20 ML ONE (07:44)
[2024-04-07] MEDS ORDERED: Ketamine In 0.9 % NaCl 50 MG/5 ML SYRINGE ONE (07:45)
[2024-04-07] MEDS: Magnesium Oxide 250 MG TAB PO SCH (10:19)
[2024-04-07] MEDS: Ferrous Sulfate 325 MG TAB PO SCH (11:38)
[2024-04-07] MEDS: EPOETIN ALFA-EPBX (ESRD) 10,000 UNITS/ML VIAL SC SCH (14:25)
[2024-04-07 17:43] LABS: #Basophils Less than 0.03 10x3/uL (0.0-0.2); %Basophils 0.3 % (0.0-1.0); %Eosinophils 2.7 % (0.0-10.0); %Lymphocytes 4.3 % (21.0-51.0); %Monocytes 14.3 % (0.0-10.0); %Neutrophils 78.1 % (42.0-75.0); Hematocrit 28.6 % (42.0-52.0); Hemoglobin 8.7 g/dL (14.0-18.0); Mean Corpuscular HGB CONC 30.4 g/dL (32.0-36.0); Mean Corpuscular Hemoglobin 32.2 pg (27.0-31.0); Mean Corpuscular Volume 105.9 fL (78.0-98.0); Platelet Count 65 10x3/uL (130-400); RBC Distribution Width 21.9 % (11.5-14.5)
[2024-04-07] MEDS: Insulin Lispro 100 UNIT/ML 10 ML VIAL SC PRN (21:08)
[2024-04-08 07:09] LABS: #Basophils Less than 0.03 10x3/uL (0.0-0.2); %Basophils 0.3 % (0.0-1.0); %Eosinophils 3.3 % (0.0-10.0); %Lymphocytes 6.8 % (21.0-51.0); %Monocytes 14.1 % (0.0-10.0); %Neutrophils 74.7 % (42.0-75.0); Hematocrit 27.6 % (42.0-52.0); Hemoglobin 8.5 g/dL (14.0-18.0); Mean Corpuscular HGB CONC 30.8 g/dL (32.0-36.0); Mean Corpuscular Hemoglobin 32.4 pg (27.0-31.0); Mean Corpuscular Volume 105.3 fL (78.0-98.0); Mean Platelet Volume 11.5 fL (7.4-10.4); Platelet Count 62 10x3/uL (130-400); RBC Distribution Width 21.2 % (11.5-14.5); Red Blood Cell (RBC) Count 2.62 mill/uL (4.70-6.10)
[2024-04-08 07:13] LABS: Anion Gap 12 mmol/L (10-20); BUN (Urea Nitrogen) 34 mg/dL (8.4-25.7); Calc. Creatinine Clearance 59 mL/min (70-130); Calcium 8.4 mg/dL (7.8-10.44); Carbon Dioxide 22 mmol/L (23-31); Chloride 109 mmol/L (98-107); Estimated GFR 35; Glucose 178 mg/dL (80-115); Magnesium 2.4 mg/dL (1.6-2.6); Potassium 4.4 mmol/L (3.5-5.1); Sodium 139 mmol/L (136-145)
[2024-04-08] MEDS: Pantoprazole DR 40 MG TAB PO SCH ×2 (14:02→21:34)
[2024-04-09 04:16] VITALS: TEMP 97.5
[2024-04-09 05:31] LABS: #Basophils Less than 0.03 10x3/uL (0.0-0.2); %Basophils 0.6 % (0.0-1.0); %Eosinophils 3.9 % (0.0-10.0); %Monocytes 13.7 % (0.0-10.0); %Neutrophils 76.2 % (42.0-75.0); Hematocrit 29.6 % (42.0-52.0); Hemoglobin 9.1 g/dL (14.0-18.0); Mean Corpuscular HGB CONC 30.7 g/dL (32.0-36.0); Mean Corpuscular Hemoglobin 31.9 pg (27.0-31.0); Mean Corpuscular Volume 103.9 fL (78.0-98.0); Platelet Count 58 10x3/uL (130-400); RBC Distribution Width 19.9 % (11.5-14.5); Red Blood Cell (RBC) Count 2.85 mill/uL (4.70-6.10)
[2024-04-09 05:45] LABS: Anion Gap 11 mmol/L (10-20); BUN (Urea Nitrogen) 31 mg/dL (8.4-25.7); Calc. Creatinine Clearance 65 mL/min (70-130); Calcium 8.4 mg/dL (7.8-10.44); Carbon Dioxide 22 mmol/L (23-31); Chloride 109 mmol/L (98-107); Estimated GFR 39; Glucose 167 mg/dL (80-115); Magnesium 2.3 mg/dL (1.6-2.6); Potassium 4.4 mmol/L (3.5-5.1); Sodium 138 mmol/L (136-145)
[2024-04-09] MEDS ORDERED: Non-Formulary Item 1 EACH (Lactulose 10 Gm/15ml Oral Sol 10 GM/15 ML Ml) PO SCH (09:00)
[2024-04-09] MEDS: Spironolactone 25 MG TAB PO SCH (09:06)
[2024-04-09] MEDS: Furosemide 20 MG TAB PO SCH (09:06)
[2024-04-09] MEDS: Lactulose 20 GM (30 mL) UDCUP PO SCH (09:07)
[2024-04-09 10:15] VITALS: BP 115/72
== END 2024-04-09 15:45 | disposition home or self-care (01) | DRG 377 ==
LOC: ERS 14:13 → ERHOLD 17:53 → OBSVTOIN 19:05 → 2SE 21:21
PROVIDERS: ADMIT Student in an Organized Health Care Education/Training Program; ATTEND Student in an Organized Health Care Education/Training Program
PROC: 0DJ08ZZ Inspection of Upper Intestinal Tract, Via Natural or Artificial Opening Endoscopic (ICD-10-PCS; principal; 2024-04-07)
DX: K31.811 Angiodysplasia of stomach and duodenum with bleeding (principal); G93.41 Metabolic encephalopathy; K76.7 Hepatorenal syndrome; N17.9 Acute kidney failure, unspecified; D53.9 Nutritional anemia, unspecified; N18.9 Chronic kidney disease, unspecified; K74.60 Unspecified cirrhosis of liver; D69.6 Thrombocytopenia, unspecified; E11.9 Type 2 diabetes mellitus without complications; I25.10 Atherosclerotic heart disease of native coronary artery without angina pectoris; Z95.1 Presence of aortocoronary bypass graft
CPT/HCPCS: 36415; 36416; 36430; 70450; 71045; 80048; 80053; 80307; 81001; 82140; 82274; 83690; 83735; 84443; 84484; 85014; 85018; 85025; 85610; 85730; 86850; 86900; 86901; 90653; 93005; 96374; 96375; J0696; J1815; J2354; J2470; J2704; J3490; J7050; P9016; P9047; Q5105

== ENCOUNTER 2024-05-02 08:06 | Day surgery (SDC) | payer MEDICARE, OTHER ==
[2024-05-02] MEDS ORDERED: diphenhydrAMINE 25 MG CAP ONE (10:34)
[2024-05-02] MEDS ORDERED: Acetaminophen 500 MG TAB ONE (10:34)
[2024-05-02] MEDS: Acetaminophen 500 MG TAB PO SCH (10:35)
[2024-05-02] MEDS: diphenhydrAMINE 25 MG CAP PO SCH (10:35)
[2024-05-02 13:22] VITALS: BP 129/57; TEMP 98
== END 2024-05-02 13:23 | disposition home or self-care (01) ==
LOC: ONC/OP 08:06
PROVIDERS: ATTEND Internal Medicine
DX: D64.9 Anemia, unspecified (principal); D69.6 Thrombocytopenia, unspecified
CPT/HCPCS: 36430; 86850; 86900; 86901; 86920; P9016

== ENCOUNTER 2024-05-14 15:05 | Inpatient (IN) | payer MEDICARE ==
[2024-05-14] MEDS ORDERED: Furosemide 40 MG (4 mL) VIAL ONE (15:40)
[2024-05-14 16:04] LABS: #Basophils 0.04 10x3/uL (0.0-0.2); %Basophils 1.1 % (0.0-1.0); %Eosinophils 3.2 % (0.0-10.0); %Lymphocytes 5.6 % (21.0-51.0); %Monocytes 15.2 % (0.0-10.0); %Neutrophils 74.1 % (42.0-75.0); Hematocrit 31.1 % (42.0-52.0); Hemoglobin 9.4 g/dL (14.0-18.0); Mean Corpuscular HGB CONC 30.2 g/dL (32.0-36.0); Mean Corpuscular Hemoglobin 32.6 pg (27.0-31.0); Mean Platelet Volume 10.7 fL (7.4-10.4); Platelet Count 78 10x3/uL (130-400); RBC Distribution Width 17.3 % (11.5-14.5); Red Blood Cell (RBC) Count 2.88 mill/uL (4.70-6.10)
[2024-05-14 16:14] LABS: INR-International Normal Ratio 1.2; PTT 31.8 sec (22.9-36.1); Prothrombin Time 15.5 sec (12.0-14.7)
[2024-05-14 16:18] LABS: ALT (SGPT) 20 U/L (8-55); AST (SGOT) 31 U/L (5-34); Alkaline Phosphatase 108 U/L (40-110); Anion Gap 13 mmol/L (10-20); BUN (Urea Nitrogen) 31 mg/dL (8.4-25.7); Bilirubin, Total 0.7 mg/dL (0.2-1.2); Calc. Creatinine Clearance 0 mL/min (70-130); Calcium 8.4 mg/dL (7.8-10.44); Carbon Dioxide 27 mmol/L (23-31); Chloride 107 mmol/L (98-107); Estimated GFR 33; Globulin 3.1 g/dL (2.4-3.5); Glucose 136 mg/dL (80-115); Lipase 34 U/L (8-78); Potassium 4.4 mmol/L (3.5-5.1); Protein, Total 6.1 g/dL (5.8-8.1); Sodium 143 mmol/L (136-145)
[2024-05-14 16:21] LABS: Troponin I Less than 0.010 ng/mL (< 0.028)
[2024-05-14] MEDS ORDERED: Calcium Carbonate 500 MG ChewTAB PO PRN (17:13)
[2024-05-14] MEDS ORDERED: Senokot S 8.6-50 MG TAB PO PRN (17:13)
[2024-05-14] MEDS ORDERED: Acetaminophen 325 MG TAB PO PRN (17:13)
[2024-05-14] MEDS ORDERED: Ondansetron PF 4 MG/2 ML Vial IVP PRN (17:13)
[2024-05-14] MEDS ORDERED: Ipratropium/Albuterol 3 ML NEB NEB PRN (17:17)
[2024-05-14] MEDS ORDERED: Dextrose 5% in Water 1,000 ML IV PRN (17:19)
[2024-05-14] MEDS ORDERED: Dextrose 50% Abboject 50 ML SYRINGE SLOW IVP PRN (17:19)
[2024-05-14] MEDS ORDERED: Insulin Lispro 100 UNIT/ML 10 ML VIAL SC PRN ×2 (17:19)
[2024-05-14] MEDS ORDERED: Glucagon 1 MG/ML KIT IM PRN (17:19)
[2024-05-14] MEDS: Albumin 25% 25 GM (100 mL) BOT IVPB SCH (21:29)
[2024-05-14 21:34] VITALS: BMI 37.5
[2024-05-14] MEDS: Gabapentin 100 MG CAP PO SCH (21:54)
[2024-05-14] MEDS: Pantoprazole DR 40 MG TAB PO SCH (21:55)
[2024-05-14] MEDS: Rifaximin 550 MG TAB PO SCH (21:55)
[2024-05-15 02:55] LABS: INR-International Normal Ratio 1.2; Prothrombin Time 15.4 sec (12.0-14.7)
[2024-05-15 03:01] LABS: ALT (SGPT) 17 U/L (8-55); AST (SGOT) 27 U/L (5-34); Albumin 3.1 g/dL (3.4-4.8); Alkaline Phosphatase 94 U/L (40-110); Anion Gap 13 mmol/L (10-20); BUN (Urea Nitrogen) 32 mg/dL (8.4-25.7); Bilirubin, Total 0.6 mg/dL (0.2-1.2); Calc. Creatinine Clearance 63 mL/min (70-130); Calcium 8.3 mg/dL (7.8-10.44); Carbon Dioxide 25 mmol/L (23-31); Chloride 107 mmol/L (98-107); Estimated GFR 37; Globulin 2.6 g/dL (2.4-3.5); Glucose 137 mg/dL (80-115); Potassium 4.2 mmol/L (3.5-5.1); Protein, Total 5.7 g/dL (5.8-8.1); Sodium 141 mmol/L (136-145)
[2024-05-15 03:04] LABS: #Basophils 0.03 10x3/uL (0.0-0.2); %Eosinophils 3.2 % (0.0-10.0); %Lymphocytes 6.4 % (21.0-51.0); %Monocytes 16.1 % (0.0-10.0); %Neutrophils 72.7 % (42.0-75.0); Hematocrit 29.3 % (42.0-52.0); Hemoglobin 8.7 g/dL (14.0-18.0); Mean Corpuscular HGB CONC 29.7 g/dL (32.0-36.0); Mean Corpuscular Hemoglobin 32.6 pg (27.0-31.0); Mean Corpuscular Volume 109.7 fL (78.0-98.0); Mean Platelet Volume 11.6 fL (7.4-10.4); Platelet Count 69 10x3/uL (130-400); RBC Distribution Width 17.2 % (11.5-14.5); Red Blood Cell (RBC) Count 2.67 mill/uL (4.70-6.10)
[2024-05-15 05:44] LABS: Anisocytosis MODERATE=16-30 cells HPF (0-5); Elliptocytes SLIGHT = 2-5 cells HPF (0-1); Eosinophils 7 % (0-10); Large Platelets 2.3 % (0-5); Lymphocytes 9 % (21-51); Monocytes 9 % (0-10); Neutrophil 74 % (42-75); Platelet Adequacy Comment Platelets Decreased; Polychromasia SLIGHT = 2-3 cells HPF (0-2); Smudge Cells 2.3 %; Tear Drops SLIGHT = 2-5 cells HPF (0-1)
[2024-05-15] MEDS ORDERED: Furosemide 40 MG (4 mL) VIAL SLOW IVP SCH (06:00)
[2024-05-15] MEDS: Atorvastatin Calcium 20 MG TAB PO SCH (08:59)
[2024-05-15] MEDS: Ferrous Sulfate 325 MG TAB PO SCH (08:59)
[2024-05-15] MEDS: Spironolactone 25 MG TAB PO SCH (08:59)
[2024-05-15] MEDS: Lactulose 20 GM (30 mL) UDCUP PO SCH (09:00)
[2024-05-15] MEDS: FLU (Fluad Triv) TS24-25 (65UP)/MF59C/PF 45 MCG/0.5 ML Syringe IM ONE (09:00)
[2024-05-15] MEDS: Saxagliptin 2.5 MG TAB PO SCH (09:03)
[2024-05-15 11:10] VITALS: BMI 37.0
[2024-05-15 11:18] LABS: Body Fluid Source Thoracentesis Fluid; Fluid, Triglycerides 25 mg/dL (Not Available); Pleural Fluid, Amylase Less than 30 U/L (Not Available); Pleural Fluid, Glucose 168 mg/dL; Pleural Fluid, LDH 40 U/L (Not Available); Pleural Fluid, Protein Less than 0.8 g/dL; RBC Count-Automated (BF) 1098 /cu.mm; WBC/Nucleated-Auto (BF) 170 /cu.mm
[2024-05-15 11:19] LABS: BF Color Yellow; Clarity Hazy (Clear); Tube # 3
[2024-05-15] MEDS: Rifaximin 200 MG TAB PO SCH ×2 (11:49→20:57)
[2024-05-15] MEDS: Insulin Glargine 30 UNITS/0.3 ML VIAL SC SCH (11:49)
[2024-05-15 12:04] LABS: Lymphocytes 27 %
[2024-05-15 12:05] LABS: BF Segmented Neutrophils 17 %; Cell Count Non Hematic 56 %
[2024-05-15] MEDS: Furosemide 40 MG (4 mL) VIAL SLOW IVP SCH (16:24)
[2024-05-15] MEDS: Guaifenesin DM 100-10/5 ML UDCUP PO PRN (16:24)
[2024-05-15] MEDS: Furosemide 40 MG TAB PO SCH (16:25)
[2024-05-15] MEDS: Atorvastatin Calcium 40 MG TAB PO SCH (20:57)
[2024-05-16 09:24] LABS: Anion Gap 12 mmol/L (10-20); BUN (Urea Nitrogen) 38 mg/dL (8.4-25.7); Calc. Creatinine Clearance 59 mL/min (70-130); Calcium 8.6 mg/dL (7.8-10.44); Carbon Dioxide 29 mmol/L (23-31); Chloride 104 mmol/L (98-107); Estimated GFR 35; Glucose 177 mg/dL (80-115); Potassium 4.3 mmol/L (3.5-5.1); Sodium 141 mmol/L (136-145)
[2024-05-16 09:37] LABS: #Basophils Less than 0.03 10x3/uL (0.0-0.2); %Basophils 0.2 % (0.0-1.0); %Eosinophils 2.4 % (0.0-10.0); %Monocytes 8.1 % (0.0-10.0); %Neutrophils 85.1 % (42.0-75.0); Hematocrit 30.2 % (42.0-52.0); Mean Corpuscular HGB CONC 29.8 g/dL (32.0-36.0); Mean Corpuscular Volume 107.5 fL (78.0-98.0); Mean Platelet Volume 10.8 fL (7.4-10.4); Platelet Count 62 10x3/uL (130-400); RBC Distribution Width 16.5 % (11.5-14.5); Red Blood Cell (RBC) Count 2.81 mill/uL (4.70-6.10)
[2024-05-16] MEDS: Nadolol 40 MG TAB PO SCH (09:44)
[2024-05-16 14:06] VITALS: BP 101/56; TEMP 98.5
== END 2024-05-16 15:58 | disposition home or self-care (01) | DRG 186 ==
LOC: ERS 15:05 → SUATTDRO 15:05 → 2NO 17:09 → OBSVTOIN 05-15 10:59
PROVIDERS: ADMIT Internal Medicine; ATTEND Internal Medicine
PROC: 0W993ZZ Drainage of Right Pleural Cavity, Percutaneous Approach (ICD-10-PCS; principal; 2024-05-15)
DX: J94.8 Other specified pleural conditions (principal); J96.01 Acute respiratory failure with hypoxia; N17.9 Acute kidney failure, unspecified; K76.6 Portal hypertension; K74.60 Unspecified cirrhosis of liver; D63.1 Anemia in chronic kidney disease; E11.22 Type 2 diabetes mellitus with diabetic chronic kidney disease; E78.5 Hyperlipidemia, unspecified; I12.9 Hypertensive chronic kidney disease with stage 1 through stage 4 chronic kidney disease, or unspecified chronic kidney disease; I25.10 Atherosclerotic heart disease of native coronary artery without angina pectoris; Z95.1 Presence of aortocoronary bypass graft; N18.30 Chronic kidney disease, stage 3 unspecified; K75.81 Nonalcoholic steatohepatitis (NASH)
CPT/HCPCS: 36415; 36416; 71045; 76705; 80048; 80053; 82140; 82150; 82945; 83615; 83690; 83735; 83880; 84157; 84478; 84484; 85025; 85060; 85610; 85730; 87116; 87206; 88112; 88305; 89051; 93005; 94760; 96374; J1642; J1815; J1940; P9047

== ENCOUNTER 2024-06-02 20:29 | Inpatient (IN) | payer MEDICARE ==
[2024-06-02] MEDS ORDERED: Ipratropium/Albuterol 3 ML NEB ONE (21:38)
[2024-06-02 21:40] LABS: ALT (SGPT) 26 U/L (8-55); AST (SGOT) 40 U/L (5-34); Albumin 3.3 g/dL (3.4-4.8); Alkaline Phosphatase 112 U/L (40-110); Anion Gap 17 mmol/L (10-20); BUN (Urea Nitrogen) 36 mg/dL (8.4-25.7); Bilirubin, Total 1.3 mg/dL (0.2-1.2); Calc. Creatinine Clearance 0 mL/min (70-130); Calcium 8.5 mg/dL (7.8-10.44); Carbon Dioxide 23 mmol/L (23-31); Chloride 102 mmol/L (98-107); Estimated GFR 35; Globulin 3.1 g/dL (2.4-3.5); Glucose 255 mg/dL (80-115); Potassium 4.3 mmol/L (3.5-5.1); Protein, Total 6.4 g/dL (5.8-8.1); Sodium 138 mmol/L (136-145)
[2024-06-02 21:41] LABS: INR-International Normal Ratio 1.4; Prothrombin Time 17.4 sec (12.0-14.7)
[2024-06-02 21:43] LABS: #Basophils Less than 0.03 10x3/uL (0.0-0.2); #Eosinophils Less than 0.03 10x3/uL (0.0-0.7); %Basophils 0.2 % (0.0-1.0); %Lymphocytes 1.5 % (21.0-51.0); %Monocytes 5.1 % (0.0-10.0); %Neutrophils 92.1 % (42.0-75.0); Hematocrit 35.6 % (42.0-52.0); Hemoglobin 11.3 g/dL (14.0-18.0); Mean Corpuscular HGB CONC 31.7 g/dL (32.0-36.0); Mean Corpuscular Hemoglobin 33.2 pg (27.0-31.0); Mean Corpuscular Volume 104.7 fL (78.0-98.0); Mean Platelet Volume 13.4 fL (7.4-10.4); Platelet Count 75 10x3/uL (130-400); RBC Distribution Width 15.4 % (11.5-14.5)
[2024-06-02 21:44] LABS: Actual Bicarbonate (HCO3v) 27.3 mEq/L (22-28); Analyzer IN Cardio ER; Base Excess 1.2 mEq/L (-2.0 to +3.0); Calcium, Ionized (venous) 1.11 mmol/L (1.16-1.32); Chloride (VBG) 100 mmol/L (98-106); Hematocrit-VBG 34 % (42.0-52.0); Hemoglobin (Hb) 11.4 g/dL (12.6-17.4); Potassium (VBG) 4.47 mmol/L (3.70-5.30); Sodium 138 mmol/L (133-146); pH (venous) 7.357 (7.32-7.43)
[2024-06-02 21:45] LABS: Troponin I Less than 0.010 ng/mL (< 0.028)
[2024-06-02] MEDS ORDERED: cefTRIAXone (ROCEPHIN) 1 GM VIAL ONE (22:08)
[2024-06-02] MEDS ORDERED: Azithromycin 500 MG VIAL ONE (22:08)
[2024-06-02] MEDS ORDERED: Sodium Chloride 0.9% 100 ML ONE (22:08)
[2024-06-02] MEDS ORDERED: Senokot S 8.6-50 MG TAB PO PRN (23:02)
[2024-06-02] MEDS ORDERED: Calcium Carbonate 500 MG ChewTAB PO PRN (23:02)
[2024-06-03 00:55] VITALS: BMI 38.2
[2024-06-03] MEDS ORDERED: Dextrose 50% Abboject 50 ML SYRINGE SLOW IVP PRN (01:24)
[2024-06-03] MEDS ORDERED: Dextrose 5% in Water 1,000 ML IV PRN (01:24)
[2024-06-03] MEDS ORDERED: Glucagon 1 MG/ML KIT IM PRN (01:24)
[2024-06-03] MEDS: Furosemide 40 MG (4 mL) VIAL SLOW IVP SCH ×2 (01:44→06:27)
[2024-06-03] MEDS: Albumin 5% 25 GM (500 mL) BOT IVPB SCH (01:45)
[2024-06-03 01:58] LABS: Lactic Acid 4.79 mmol/L (0.5-2.2)
[2024-06-03 04:28] LABS: #Basophils Less than 0.03 10x3/uL (0.0-0.2); #Eosinophils Less than 0.03 10x3/uL (0.0-0.7); %Basophils 0.2 % (0.0-1.0); %Monocytes 6.2 % (0.0-10.0); %Neutrophils 90.9 % (42.0-75.0); Hematocrit 32.5 % (42.0-52.0); Mean Corpuscular HGB CONC 30.8 g/dL (32.0-36.0); Mean Corpuscular Volume 107.3 fL (78.0-98.0); Platelet Count 54 10x3/uL (130-400); RBC Distribution Width 15.3 % (11.5-14.5); Red Blood Cell (RBC) Count 3.03 mill/uL (4.70-6.10)
[2024-06-03 04:38] LABS: Legionella Urinary Ag Negative (Negative); Strep pneumo Urine Ag NEGATIVE (NEGATIVE)
[2024-06-03 04:41] LABS: ALT (SGPT) 21 U/L (8-55); AST (SGOT) 32 U/L (5-34); Albumin 2.9 g/dL (3.4-4.8); Alkaline Phosphatase 93 U/L (40-110); Anion Gap 18 mmol/L (10-20); BUN (Urea Nitrogen) 38 mg/dL (8.4-25.7); Bilirubin, Total 1.2 mg/dL (0.2-1.2); Calc. Creatinine Clearance 59 mL/min (70-130); Calcium 8.1 mg/dL (7.8-10.44); Carbon Dioxide 22 mmol/L (23-31); Chloride 102 mmol/L (98-107); Estimated GFR 35; Glucose 233 mg/dL (80-115); Magnesium 1.8 mg/dL (1.6-2.6); Potassium 4.3 mmol/L (3.5-5.1); Protein, Total 5.9 g/dL (5.8-8.1); Sodium 138 mmol/L (136-145)
[2024-06-03 08:06] LABS: Bacteria/HPF None Seen HPF (None Seen); Bilirubin Negative (Negative); Blood, Urine Negative (Negative); CAUTI Indications for Culture Fever or rigors; Clarity Clear (Clear); Glucose, Urine (Dipstick) Normal (Negative); Ketone, Urine Negative (Negative); Leukocyte Negative Leu/uL (Negative); Nitrite Negative (Negative); Protein, Urine (Dipstick) Negative (Neg-Trace); RBC/HPF 0-3 HPF (0-3); Specific Gravity, Urine 1.004 (1.002-1.036); Squamous Epithelial None Seen HPF (0-3); Urobilinogen Normal mg/dL (Less than 2); WBC/HPF None Seen HPF (0-3)
[2024-06-03 08:07] LABS: Urine Culture Reflex No No
[2024-06-03] MEDS ORDERED: Rifaximin 550 MG TAB PO SCH (09:00)
[2024-06-03] MEDS ORDERED: cefTRIAXone\\ROCEPHIN 2 GM in Sodium Chloride 0.9% 100 ML IVPB SCH (09:00)
[2024-06-03] MEDS ORDERED: cefTRIAXone\\ROCEPHIN 1 GM in Sodium Chloride 0.9% 100 ML IVPB SCH (09:00)
[2024-06-03] MEDS: Albumin 25% 25 GM (100 mL) BOT IVPB SCH (09:36)
[2024-06-03] MEDS: cefTRIAXone\\ROCEPHIN 2 GM in Sodium Chloride 0.9% 100 ML IVPB SCH (09:36)
[2024-06-03] MEDS: Ferrous Sulfate 325 MG TAB PO SCH (09:37)
[2024-06-03] MEDS: Multivitamin W/ Minerals 1 TAB PO SCH (09:37)
[2024-06-03] MEDS: Spironolactone 25 MG TAB PO SCH (09:37)
[2024-06-03] MEDS: Magnesium Oxide 250 MG TAB PO SCH (09:37)
[2024-06-03] MEDS: Gabapentin 100 MG CAP PO SCH (09:37)
[2024-06-03] MEDS: Rifaximin 200 MG TAB PO SCH (09:38)
[2024-06-03] MEDS: Pantoprazole DR 40 MG TAB PO SCH (09:38)
[2024-06-03] MEDS: Azithromycin 500 MG in Sodium Chloride 0.9% 250 ML 250 ML IVPB SCH (09:38)
[2024-06-03] MEDS: Cholecalciferol 1,000 UNITS (25 MCG) TAB PO SCH (09:38)
[2024-06-03] MEDS: Nadolol 40 MG TAB PO SCH (09:38)
[2024-06-03] MEDS: Lactulose 20 GM (30 mL) UDCUP PO SCH (09:44)
[2024-06-03] MEDS: Ondansetron PF 4 MG/2 ML Vial IVP PRN (12:20)
[2024-06-03] MEDS: Insulin Glargine 30 UNITS/0.3 ML VIAL SC SCH (12:20)
[2024-06-03] MEDS: Alogliptin 6.25 MG TAB PO SCH (15:16)
[2024-06-03 18:13] LABS: RBC Count-Automated (BF) 3791 /cu.mm; WBC/Nucleated-Auto (BF) 6760 /cu.mm
[2024-06-03 18:19] LABS: Pleural Fluid, Amylase Less than 30 U/L (Not Available); Pleural Fluid, Glucose 240 mg/dL; Pleural Fluid, LDH 88 U/L (Not Available); Pleural Fluid, Protein 0.9 g/dL
[2024-06-03 19:31] LABS: BF Color Pink; Body Fluid Source Thoracentesis Fluid; Clarity Hazy (Clear); Tube # EDTA
[2024-06-03 19:40] LABS: BF Segmented Neutrophils 79 %; Cell Count Non Hematic 19 %; Lymphocytes 2 %
[2024-06-03] MEDS: Atorvastatin Calcium 40 MG TAB PO SCH (21:05)
[2024-06-04 04:37] LABS: #Basophils Less than 0.03 10x3/uL (0.0-0.2); %Basophils 0.1 % (0.0-1.0); %Eosinophils 0.7 % (0.0-10.0); %Lymphocytes 2.5 % (21.0-51.0); %Monocytes 8.8 % (0.0-10.0); %Neutrophils 87.5 % (42.0-75.0); Hemoglobin 8.9 g/dL (14.0-18.0); Mean Corpuscular HGB CONC 30.7 g/dL (32.0-36.0); Mean Corpuscular Hemoglobin 32.8 pg (27.0-31.0); Platelet Count 55 10x3/uL (130-400); RBC Distribution Width 14.7 % (11.5-14.5); Red Blood Cell (RBC) Count 2.71 mill/uL (4.70-6.10)
[2024-06-04 04:55] LABS: Anion Gap 13 mmol/L (10-20); BUN (Urea Nitrogen) 52 mg/dL (8.4-25.7); Calc. Creatinine Clearance 55 mL/min (70-130); Carbon Dioxide 27 mmol/L (23-31); Chloride 102 mmol/L (98-107); Estimated GFR 32; Glucose 130 mg/dL (80-115); Potassium 4.6 mmol/L (3.5-5.1); Sodium 137 mmol/L (136-145)
[2024-06-04] MEDS: Alogliptin 6.25 MG TAB PO SCH (09:56)
[2024-06-04] MEDS: Midodrine HCl 5 MG TAB PO SCH ×2 (10:22→14:22)
[2024-06-04] MEDS: Albumin 25% 25 GM (100 mL) BOT IVPB SCH (12:23)
[2024-06-04 17:17] LABS: Reference Lab Name LABCORP
[2024-06-05 04:57] LABS: #Basophils Less than 0.03 10x3/uL (0.0-0.2); %Basophils 0.2 % (0.0-1.0); %Eosinophils 0.9 % (0.0-10.0); %Lymphocytes 3.5 % (21.0-51.0); %Monocytes 9.5 % (0.0-10.0); %Neutrophils 85.6 % (42.0-75.0); Hematocrit 28.2 % (42.0-52.0); Hemoglobin 8.6 g/dL (14.0-18.0); Mean Corpuscular HGB CONC 30.5 g/dL (32.0-36.0); Mean Corpuscular Hemoglobin 32.2 pg (27.0-31.0); Mean Corpuscular Volume 105.6 fL (78.0-98.0); Mean Platelet Volume 12.9 fL (7.4-10.4); Platelet Count 70 10x3/uL (130-400); RBC Distribution Width 14.6 % (11.5-14.5); Red Blood Cell (RBC) Count 2.67 mill/uL (4.70-6.10)
[2024-06-05 04:58] LABS: Anion Gap 15 mmol/L (10-20); BUN (Urea Nitrogen) 63 mg/dL (8.4-25.7); Calc. Creatinine Clearance 52 mL/min (70-130); Calcium 7.9 mg/dL (7.8-10.44); Carbon Dioxide 27 mmol/L (23-31); Chloride 101 mmol/L (98-107); Estimated GFR 31; Glucose 116 mg/dL (80-115); Potassium 4.5 mmol/L (3.5-5.1); Sodium 138 mmol/L (136-145)
[2024-06-05] MEDS: Albumin 25% 25 GM (100 mL) BOT IVPB SCH (11:37)
[2024-06-05] MEDS: Acetaminophen 325 MG TAB PO PRN (11:48)
[2024-06-05] MEDS: Furosemide 40 MG (4 mL) VIAL SLOW IVP SCH (16:02)
[2024-06-06] MEDS: Ipratropium/Albuterol 3 ML NEB NEB PRN (02:07)
[2024-06-06] MEDS ORDERED: Furosemide 20 MG (2 mL) VIAL SLOW IVP SCH (02:15)
[2024-06-06] MEDS: Furosemide 40 MG (4 mL) VIAL SLOW IVP SCH ×2 (02:52→14:53)
[2024-06-06 03:02] LABS: #Basophils 0.03 10x3/uL (0.0-0.2); %Basophils 0.4 % (0.0-1.0); %Eosinophils 0.4 % (0.0-10.0); %Lymphocytes 2.6 % (21.0-51.0); %Monocytes 11.6 % (0.0-10.0); %Neutrophils 83.9 % (42.0-75.0); Hematocrit 31.7 % (42.0-52.0); Hemoglobin 9.5 g/dL (14.0-18.0); Mean Corpuscular Hemoglobin 32.5 pg (27.0-31.0); Mean Corpuscular Volume 108.6 fL (78.0-98.0); Mean Platelet Volume 12.6 fL (7.4-10.4); Platelet Count 87 10x3/uL (130-400); RBC Distribution Width 14.8 % (11.5-14.5); Red Blood Cell (RBC) Count 2.92 mill/uL (4.70-6.10)
[2024-06-06 04:10] LABS: Anion Gap 16 mmol/L (10-20); BUN (Urea Nitrogen) 72 mg/dL (8.4-25.7); Calc. Creatinine Clearance 49 mL/min (70-130); Calcium 8.4 mg/dL (7.8-10.44); Carbon Dioxide 26 mmol/L (23-31); Chloride 102 mmol/L (98-107); Estimated GFR 29; Glucose 220 mg/dL (80-115); Magnesium 2.8 mg/dL (1.6-2.6); Sodium 139 mmol/L (136-145)
[2024-06-06] MEDS: Albumin 25% 25 GM (100 mL) BOT IVPB SCH (12:32)
[2024-06-06] MEDS: Rifaximin 550 MG TAB PO SCH (12:32)
[2024-06-07 04:19] LABS: Actual Bicarbonate (HCO3a) 35.1 mEq/L (22-28); Calcium, Ionized (arterial) 1.18 mmol/L (1.12-1.30); Hematocrit-ABG 29 % (42.0-52.0); Hemoglobin (Hb) 9.7 g/dL (14.0-18.0); O2 Tension (PaO2), arterial 68.3 mmHg (> 80.0); Potassium - ABG Lab 4.71 mmol/L (3.70-5.30); pH, Arterial 7.241 (7.35-7.45)
[2024-06-07 04:20] LABS: CO2 Tension 83.7 mmHg (35.0-45.0)
[2024-06-07 04:21] LABS: ALV-art Gradient 40.975 mmHg (0-20); Puncture Site Right Radial artery
[2024-06-07 04:24] LABS: #Basophils Less than 0.03 10x3/uL (0.0-0.2); %Basophils 0.2 % (0.0-1.0); %Eosinophils 1.6 % (0.0-10.0); %Lymphocytes 2.9 % (21.0-51.0); %Monocytes 13.7 % (0.0-10.0); %Neutrophils 80.1 % (42.0-75.0); Hematocrit 29.4 % (42.0-52.0); Hemoglobin 8.9 g/dL (14.0-18.0); Mean Corpuscular HGB CONC 30.3 g/dL (32.0-36.0); Mean Corpuscular Hemoglobin 31.9 pg (27.0-31.0); Mean Corpuscular Volume 105.4 fL (78.0-98.0); Platelet Count 78 10x3/uL (130-400); RBC Distribution Width 14.6 % (11.5-14.5); Red Blood Cell (RBC) Count 2.79 mill/uL (4.70-6.10)
[2024-06-07 04:30] LABS: Lactic Acid 0.65 mmol/L (0.5-2.2)
[2024-06-07 04:34] LABS: ALT (SGPT) 27 U/L (8-55); AST (SGOT) 54 U/L (5-34); Albumin 4.2 g/dL (3.4-4.8); Alkaline Phosphatase 90 U/L (40-110); Anion Gap 15 mmol/L (10-20); BUN (Urea Nitrogen) 66 mg/dL (8.4-25.7); Bilirubin, Total 0.5 mg/dL (0.2-1.2); Calc. Creatinine Clearance 49 mL/min (70-130); Calcium 8.3 mg/dL (7.8-10.44); Carbon Dioxide 32 mmol/L (23-31); Chloride 99 mmol/L (98-107); Estimated GFR 28; Globulin 2.1 g/dL (2.4-3.5); Glucose 214 mg/dL (80-115); Magnesium 2.7 mg/dL (1.6-2.6); Potassium 4.8 mmol/L (3.5-5.1); Protein, Total 6.3 g/dL (5.8-8.1); Sodium 141 mmol/L (136-145)
[2024-06-07 08:43] LABS: Calcium, Ionized (arterial) 1.18 mmol/L (1.12-1.30); Hematocrit-ABG 28 % (42.0-52.0); Hemoglobin (Hb) 9.5 g/dL (14.0-18.0); O2 Tension (PaO2), arterial 77.5 mmHg (> 80.0); Potassium - ABG Lab 4.56 mmol/L (3.70-5.30); pH, Arterial 7.309 (7.35-7.45)
[2024-06-07 08:44] LABS: CO2 Tension 73.3 mmHg (35.0-45.0); Puncture Site Right Brachial art
[2024-06-07 08:45] LABS: ALV-art Gradient 151.725 mmHg (0-20)
[2024-06-07] MEDS: Lidocaine 1% (PF) 30 ML VIAL ONE (09:20)
[2024-06-08 03:38] LABS: #Basophils 0.03 10x3/uL (0.0-0.2); %Basophils 0.5 % (0.0-1.0); %Eosinophils 2.2 % (0.0-10.0); %Lymphocytes 2.7 % (21.0-51.0); %Monocytes 13.3 % (0.0-10.0); %Neutrophils 80.1 % (42.0-75.0); Hematocrit 27.9 % (42.0-52.0); Hemoglobin 8.7 g/dL (14.0-18.0); Mean Corpuscular HGB CONC 31.2 g/dL (32.0-36.0); Mean Corpuscular Hemoglobin 32.3 pg (27.0-31.0); Mean Corpuscular Volume 103.7 fL (78.0-98.0); Mean Platelet Volume 13.2 fL (7.4-10.4); Platelet Count 70 10x3/uL (130-400); RBC Distribution Width 14.8 % (11.5-14.5); Red Blood Cell (RBC) Count 2.69 mill/uL (4.70-6.10)
[2024-06-08 03:46] LABS: Anion Gap 15 mmol/L (10-20); BUN (Urea Nitrogen) 70 mg/dL (8.4-25.7); Calc. Creatinine Clearance 61 mL/min (70-130); Calcium 8.8 mg/dL (7.8-10.44); Carbon Dioxide 32 mmol/L (23-31); Chloride 100 mmol/L (98-107); Estimated GFR 37; Glucose 174 mg/dL (80-115); Magnesium 2.8 mg/dL (1.6-2.6); Potassium 4.8 mmol/L (3.5-5.1); Sodium 142 mmol/L (136-145)
[2024-06-08] MEDS: Insulin Lispro 100 UNIT/ML 10 ML VIAL SC PRN (18:38)
[2024-06-09 07:13] LABS: Actual Bicarbonate (HCO3a) 32.1 mEq/L (22-28); Base Excess (BEa) 7.8 mEq/L (-2.0 to +3.0); CO2 Tension 44.1 mmHg (35.0-45.0); Calcium, Ionized (arterial) 1.15 mmol/L (1.12-1.30); Carboxyhemoglobin (COHb) 0.4 gm% (0.0-3.0); Hematocrit-ABG 28 % (42.0-52.0); Hemoglobin (Hb) 9.6 g/dL (14.0-18.0); O2 Tension (PaO2), arterial 105.7 mmHg (> 80.0); Potassium - ABG Lab 3.93 mmol/L (3.70-5.30)
[2024-06-09 07:14] LABS: Puncture Site Right Brachial art
[2024-06-09 07:15] LABS: ALV-art Gradient 88.725 mmHg (0-20)
[2024-06-09 08:08] LABS: #Basophils Less than 0.03 10x3/uL (0.0-0.2); %Basophils 0.4 % (0.0-1.0); %Eosinophils 3.5 % (0.0-10.0); %Lymphocytes 3.7 % (21.0-51.0); %Monocytes 14.8 % (0.0-10.0); %Neutrophils 76.3 % (42.0-75.0); Hematocrit 28.7 % (42.0-52.0); Mean Corpuscular HGB CONC 31.4 g/dL (32.0-36.0); Mean Corpuscular Hemoglobin 32.1 pg (27.0-31.0); Mean Corpuscular Volume 102.5 fL (78.0-98.0); Mean Platelet Volume 12.6 fL (7.4-10.4); Platelet Count 83 10x3/uL (130-400); RBC Distribution Width 14.9 % (11.5-14.5)
[2024-06-09 08:19] LABS: Anion Gap 16 mmol/L (10-20); BUN (Urea Nitrogen) 72 mg/dL (8.4-25.7); Calc. Creatinine Clearance 63 mL/min (70-130); Calcium 9.2 mg/dL (7.8-10.44); Carbon Dioxide 32 mmol/L (23-31); Chloride 99 mmol/L (98-107); Estimated GFR 39; Glucose 150 mg/dL (80-115); Potassium 4.2 mmol/L (3.5-5.1); Sodium 143 mmol/L (136-145)
[2024-06-09] MEDS: Alogliptin 25 MG TAB PO SCH (12:44)
[2024-06-10 08:45] LABS: Anion Gap 17 mmol/L (10-20); BUN (Urea Nitrogen) 68 mg/dL (8.4-25.7); Calc. Creatinine Clearance 58 mL/min (70-130); Calcium 8.9 mg/dL (7.8-10.44); Carbon Dioxide 30 mmol/L (23-31); Chloride 96 mmol/L (98-107); Estimated GFR 37; Glucose 228 mg/dL (80-115); Potassium 4.2 mmol/L (3.5-5.1); Sodium 139 mmol/L (136-145)
[2024-06-10] MEDS: Alogliptin 25 MG TAB PO SCH (09:32)
[2024-06-11 08:55] LABS: Anion Gap 16 mmol/L (10-20); BUN (Urea Nitrogen) 68 mg/dL (8.4-25.7); Calc. Creatinine Clearance 51 mL/min (70-130); Calcium 8.8 mg/dL (7.8-10.44); Carbon Dioxide 31 mmol/L (23-31); Chloride 94 mmol/L (98-107); Estimated GFR 32; Glucose 200 mg/dL (80-115); Magnesium 2.5 mg/dL (1.6-2.6); Sodium 137 mmol/L (136-145)
[2024-06-11] MEDS: Albumin 25% 25 GM (100 mL) BOT IVPB SCH (12:07)
[2024-06-12 05:58] LABS: Anion Gap 10 mmol/L (10-20); BUN (Urea Nitrogen) 68 mg/dL (8.4-25.7); Calc. Creatinine Clearance 52 mL/min (70-130); Calcium 8.5 mg/dL (7.8-10.44); Carbon Dioxide 33 mmol/L (23-31); Chloride 95 mmol/L (98-107); Estimated GFR 33; Glucose 168 mg/dL (80-115); Magnesium 2.8 mg/dL (1.6-2.6); Potassium 4.3 mmol/L (3.5-5.1); Sodium 134 mmol/L (136-145)
[2024-06-12 06:14] LABS: #Basophils Less than 0.03 10x3/uL (0.0-0.2); %Basophils 0.4 % (0.0-1.0); %Eosinophils 2.9 % (0.0-10.0); %Lymphocytes 5.7 % (21.0-51.0); %Monocytes 14.7 % (0.0-10.0); %Neutrophils 74.2 % (42.0-75.0); Hematocrit 26.8 % (42.0-52.0); Hemoglobin 8.5 g/dL (14.0-18.0); Mean Corpuscular HGB CONC 31.7 g/dL (32.0-36.0); Mean Corpuscular Hemoglobin 31.6 pg (27.0-31.0); Mean Corpuscular Volume 99.6 fL (78.0-98.0); Mean Platelet Volume 12.9 fL (7.4-10.4); Platelet Count 83 10x3/uL (130-400); RBC Distribution Width 14.8 % (11.5-14.5); Red Blood Cell (RBC) Count 2.69 mill/uL (4.70-6.10)
[2024-06-12] MEDS: Loratadine 10 MG TAB PO SCH (09:31)
[2024-06-12] MEDS: Insulin Lispro 100 UNIT/ML 10 ML VIAL SC PRN (21:57)
[2024-06-13 07:07] LABS: Anion Gap 15 mmol/L (10-20); BUN (Urea Nitrogen) 69 mg/dL (8.4-25.7); Calc. Creatinine Clearance 52 mL/min (70-130); Calcium 8.7 mg/dL (7.8-10.44); Carbon Dioxide 28 mmol/L (23-31); Chloride 97 mmol/L (98-107); Estimated GFR 33; Glucose 161 mg/dL (80-115); Potassium 4.4 mmol/L (3.5-5.1); Sodium 136 mmol/L (136-145)
[2024-06-14 06:12] LABS: Anion Gap 13 mmol/L (10-20); BUN (Urea Nitrogen) 76 mg/dL (8.4-25.7); Calc. Creatinine Clearance 55 mL/min (70-130); Calcium 8.2 mg/dL (7.8-10.44); Carbon Dioxide 31 mmol/L (23-31); Chloride 98 mmol/L (98-107); Estimated GFR 35; Glucose 177 mg/dL (80-115); Potassium 4.8 mmol/L (3.5-5.1); Sodium 137 mmol/L (136-145)
[2024-06-14 11:44] VITALS: BMI 35.6
[2024-06-15 01:46] VITALS: BP 122/72; TEMP 98.5
== END 2024-06-14 22:58 | disposition short-term general hospital (02) | DRG 186 ==
LOC: SUATTDRO 20:29 → ERS 20:29 → 2NO 23:01 → CCU 06-07 04:58 → SURG B 06-10 11:00
PROVIDERS: ADMIT Internal Medicine; ATTEND Internal Medicine
PROC: 0W993ZZ Drainage of Right Pleural Cavity, Percutaneous Approach (ICD-10-PCS; principal; 2024-06-03)
PROC: 30233J0 Transfusion of Autologous Serum Albumin into Peripheral Vein, Percutaneous Approach (ICD-10-PCS; 2024-06-03)
PROC: 0W993ZZ Drainage of Right Pleural Cavity, Percutaneous Approach (ICD-10-PCS; 2024-06-07)
DX: J90 Pleural effusion, not elsewhere classified (principal); J15.4 Pneumonia due to other streptococci; J96.01 Acute respiratory failure with hypoxia; K76.7 Hepatorenal syndrome; J94.8 Other specified pleural conditions; K76.6 Portal hypertension; N17.9 Acute kidney failure, unspecified; D68.9 Coagulation defect, unspecified; E87.3 Alkalosis; E87.29 Other acidosis; I25.10 Atherosclerotic heart disease of native coronary artery without angina pectoris; E11.22 Type 2 diabetes mellitus with diabetic chronic kidney disease; K75.81 Nonalcoholic steatohepatitis (NASH); E78.5 Hyperlipidemia, unspecified; I95.9 Hypotension, unspecified; D69.6 Thrombocytopenia, unspecified; I12.9 Hypertensive chronic kidney disease with stage 1 through stage 4 chronic kidney disease, or unspecified chronic kidney disease; N18.30 Chronic kidney disease, stage 3 unspecified; E66.9 Obesity, unspecified; K72.10 Chronic hepatic failure without coma; K74.60 Unspecified cirrhosis of liver; D63.1 Anemia in chronic kidney disease; Z79.82 Long term (current) use of aspirin; Z79.899 Other long term (current) drug therapy; Z88.8 Allergy status to other drugs, medicaments and biological substances; Z95.1 Presence of aortocoronary bypass graft; Z99.81 Dependence on supplemental oxygen; Z53.20 Procedure and treatment not carried out because of patient's decision for unspecified reasons; Z68.35 Body mass index [BMI] 35.0-35.9, adult
CPT/HCPCS: 36415; 36416; 36600; 70450; 71045; 71046; 76705; 80048; 80053; 80076; 81001; 82140; 82150; 82805; 82945; 83605; 83615; 83735; 83880; 83986; 84145; 84157; 84207; 84484; 85025; 85027; 85060; 85610; 85730; 87040; 87070; 87102; 87116; 87149; 87205; 87206; 87428; 87449; 87899; 88112; 88305; 89051; 93005; 93306; 94640; 94660; 96374; 96375; 97139; J0456; J0696; J1815; J1940; J2405; J7050; J7620; P9045; P9047

== ENCOUNTER 2024-06-30 15:39 | Inpatient (IN) | payer MEDICARE ==
[2024-06-30 16:31] LABS: Lipase 64 U/L (8-78)
[2024-06-30 16:33] LABS: ALT (SGPT) 38 U/L (8-55); AST (SGOT) 52 U/L (5-34); Albumin 3.6 g/dL (3.4-4.8); Alkaline Phosphatase 164 U/L (40-110); Anion Gap 21 mmol/L (10-20); BUN (Urea Nitrogen) 83 mg/dL (8.4-25.7); Calc. Creatinine Clearance 0 mL/min (70-130); Calcium 9.7 mg/dL (7.8-10.44); Carbon Dioxide 23 mmol/L (23-31); Chloride 96 mmol/L (98-107); Estimated GFR 24; Globulin 4.1 g/dL (2.4-3.5); Glucose 273 mg/dL (80-115); Potassium 4.9 mmol/L (3.5-5.1); Protein, Total 7.7 g/dL (5.8-8.1); Sodium 135 mmol/L (136-145)
[2024-06-30 16:34] LABS: Acetaminophen Less than 10 mcg/mL (Less than 10); Alcohol Less than 10.0 mg/dL (Less than 10); Salicylate Less than 8.0 mg/dL (Less than 8.0)
[2024-06-30 16:36] LABS: Troponin I Less than 0.010 ng/mL (< 0.028)
[2024-06-30 16:53] LABS: Anisocytosis MARKED = >30 cells HPF (0-5); Band 1 % (5-11); Elliptocytes SLIGHT = 2-5 cells HPF (0-1); Hypochromia SLIGHT = 6-15 cells HPF (0-5); Lymphocytes 1 % (21-51); Macrocytosis MODERATE=16-30 cells HPF (0-5); Monocytes 9 % (0-10); Neutrophil 88 % (42-75); Ovalocytes SLIGHT = 2-5 cells HPF (0-1); Platelet Adequacy Comment Platelets Decreased; Polychromasia SLIGHT = 2-3 cells HPF (0-2)
[2024-06-30 16:54] LABS: Hematocrit 29.5 % (42.0-52.0); Hemoglobin 9.3 g/dL (14.0-18.0); Mean Corpuscular HGB CONC 31.5 g/dL (32.0-36.0); Mean Corpuscular Hemoglobin 30.6 pg (27.0-31.0); Mean Platelet Volume 12.2 fL (7.4-10.4); Platelet Count 84 10x3/uL (130-400); RBC Distribution Width 16.2 % (11.5-14.5); Red Blood Cell (RBC) Count 3.04 mill/uL (4.70-6.10)
[2024-06-30 17:23] LABS: Bacteria/HPF None Seen HPF (None Seen); Bilirubin Negative (Negative); Blood, Urine Negative (Negative); CAUTI Indications for Culture Alt mental st,lethar; Clarity Clear (Clear); Glucose, Urine (Dipstick) Normal (Negative); Ketone, Urine Negative (Negative); Leukocyte Negative Leu/uL (Negative); Nitrite Negative (Negative); Protein, Urine (Dipstick) Negative (Neg-Trace); RBC/HPF 0-3 HPF (0-3); Specific Gravity, Urine 1.011 (1.002-1.036); Squamous Epithelial 0-3 HPF (0-3); Urobilinogen Normal mg/dL (Less than 2); WBC/HPF 0-3 HPF (0-3); pH, Urine 5.5 (5.0-9.0)
[2024-06-30 17:25] LABS: Amphetamine Not Detected (NotDetected); Barbiturates Screen Not Detected (NotDetected); Benzodiazepine Screen Not Detected (NotDetected); Cocaine Metabolite Screen Not Detected (NotDetected); Methadone Not Detected (NotDetected); Methamphetamine Not Detected (NotDetected); Opiate Screen Not Detected (NotDetected); Oxycodone Screen Not Detected (NotDetected); Phencyclidine (PCP) Not Detected (NotDetected); THC/Cannabinoid Screen Not Detected (NotDetected); Tricyclic Screen Not Detected (NotDetected)
[2024-06-30 17:26] LABS: Urine Culture Reflex No No
[2024-06-30 18:05] LABS: Phosphorus 4.4 mg/dL (2.3-4.7)
[2024-06-30 18:07] LABS: Magnesium 3.1 mg/dL (1.6-2.6)
[2024-06-30] MEDS ORDERED: levETIRAcetam 500 MG (5 mL) VIAL ONE ×2 (20:37→20:47)
[2024-06-30 20:49] LABS: Actual Bicarbonate (HCO3v) 26.2 mEq/L (22-28); Analyzer IN Cardio ER; Base Excess 1.9 mEq/L (-2.0 to +3.0); Calcium, Ionized (venous) 1.11 mmol/L (1.16-1.32); Chloride (VBG) 99 mmol/L (98-106); Hematocrit-VBG 31 % (42.0-52.0); Hemoglobin (Hb) 10.4 g/dL (12.6-17.4); Potassium (VBG) 4.46 mmol/L (3.70-5.30); Sodium 136 mmol/L (133-146); pH (venous) 7.439 (7.32-7.43)
[2024-06-30] MEDS ORDERED: Lorazepam 2 MG/ML VIAL SLOW IVP PRN (20:49)
[2024-06-30] MEDS ORDERED: Senokot S 8.6-50 MG TAB PO PRN (22:14)
[2024-06-30] MEDS ORDERED: Ondansetron PF 4 MG/2 ML Vial IVP PRN (22:23)
[2024-06-30] MEDS ORDERED: Acetaminophen 650 MG Suppository PR PRN (22:23)
[2024-06-30] MEDS ORDERED: Calcium Carbonate 500 MG ChewTAB PO PRN (22:23)
[2024-06-30] MEDS ORDERED: Acetaminophen 325 MG TAB PO PRN (22:23)
[2024-06-30] MEDS ORDERED: Ondansetron ODT 4 MG TAB PO PRN (22:23)
[2024-06-30] MEDS ORDERED: Dextrose 50% Abboject 50 ML SYRINGE SLOW IVP PRN (22:24)
[2024-06-30] MEDS ORDERED: Dextrose 5% in Water 1,000 ML IV PRN (22:24)
[2024-06-30] MEDS ORDERED: Glucagon 1 MG/ML KIT IM PRN (22:24)
[2024-06-30 23:05] VITALS: BMI 32.8
[2024-06-30] MEDS ORDERED: Lorazepam 2 MG/ML VIAL ONE (23:23)
[2024-07-01] MEDS ORDERED: levETIRAcetam 500 MG TAB ONE ×2 (00:50→09:23)
[2024-07-01] MEDS: levETIRAcetam 500 MG TAB PO SCH (00:52)
[2024-07-01 03:53] LABS: #Basophils Less than 0.03 10x3/uL (0.0-0.2); %Basophils 0.4 % (0.0-1.0); %Eosinophils 2.4 % (0.0-10.0); %Neutrophils 74.3 % (42.0-75.0); Hematocrit 25.1 % (42.0-52.0); Hemoglobin 8.1 g/dL (14.0-18.0); Mean Corpuscular HGB CONC 32.3 g/dL (32.0-36.0); Mean Corpuscular Hemoglobin 31.8 pg (27.0-31.0); Mean Corpuscular Volume 98.4 fL (78.0-98.0); Mean Platelet Volume 12.7 fL (7.4-10.4); Platelet Count 90 10x3/uL (130-400); RBC Distribution Width 16.3 % (11.5-14.5); Red Blood Cell (RBC) Count 2.55 mill/uL (4.70-6.10)
[2024-07-01 03:58] LABS: ALT (SGPT) 28 U/L (8-55); AST (SGOT) 35 U/L (5-34); Albumin 3.1 g/dL (3.4-4.8); Alkaline Phosphatase 138 U/L (40-110); Anion Gap 16 mmol/L (10-20); BUN (Urea Nitrogen) 80 mg/dL (8.4-25.7); Bilirubin, Total 0.8 mg/dL (0.2-1.2); Calc. Creatinine Clearance 43 mL/min (70-130); Calcium 8.9 mg/dL (7.8-10.44); Carbon Dioxide 24 mmol/L (23-31); Chloride 102 mmol/L (98-107); Estimated GFR 27; Globulin 3.2 g/dL (2.4-3.5); Glucose 171 mg/dL (80-115); Potassium 4.4 mmol/L (3.5-5.1); Protein, Total 6.3 g/dL (5.8-8.1); Sodium 138 mmol/L (136-145)
[2024-07-01] MEDS ORDERED: Pantoprazole 40 MG DR.TAB ONE (09:22)
[2024-07-01] MEDS ORDERED: Gabapentin 100 MG CAP ONE (09:22)
[2024-07-01] MEDS ORDERED: Lactulose 20 GM (30 mL) UDCUP ONE (09:23)
[2024-07-01] MEDS: Lactulose 20 GM (30 mL) UDCUP PO SCH (11:22)
[2024-07-01] MEDS: Pantoprazole 40 MG DR.TAB PO SCH (11:22)
[2024-07-01] MEDS: Gabapentin 100 MG CAP PO SCH (11:22)
[2024-07-01] MEDS: Magnesium Oxide 250 MG TAB PO SCH (12:00)
[2024-07-01] MEDS: Rifaximin 550 MG TAB PO SCH ×2 (12:00→21:09)
[2024-07-01] MEDS: Saxagliptin 5 MG TABLET PO SCH (12:00)
[2024-07-01] MEDS: Ferrous Sulfate 325 MG TAB PO SCH (12:00)
[2024-07-01] MEDS: Midodrine HCl 5 MG TAB PO SCH (12:00)
[2024-07-01] MEDS ORDERED: Insulin Glargine 30 UNITS/0.3 ML VIAL ONE (13:32)
[2024-07-01] MEDS: Insulin Glargine 30 UNITS/0.3 ML VIAL SC SCH (13:36)
[2024-07-01] MEDS: Insulin Lispro 100 UNIT/ML 10 ML VIAL SC PRN (17:18)
[2024-07-01] MEDS: Atorvastatin Calcium 40 MG TAB PO SCH (21:11)
[2024-07-02 03:33] LABS: #Basophils Less than 0.03 10x3/uL (0.0-0.2); %Basophils 0.5 % (0.0-1.0); %Eosinophils 4.2 % (0.0-10.0); %Lymphocytes 6.3 % (21.0-51.0); %Monocytes 17.3 % (0.0-10.0); %Neutrophils 70.9 % (42.0-75.0); Hemoglobin 8.4 g/dL (14.0-18.0); Mean Corpuscular HGB CONC 31.1 g/dL (32.0-36.0); Mean Corpuscular Hemoglobin 30.5 pg (27.0-31.0); Mean Corpuscular Volume 98.2 fL (78.0-98.0); Mean Platelet Volume 12.3 fL (7.4-10.4); Platelet Count 84 10x3/uL (130-400); RBC Distribution Width 16.2 % (11.5-14.5); Red Blood Cell (RBC) Count 2.75 mill/uL (4.70-6.10)
[2024-07-02 04:38] LABS: ALT (SGPT) 27 U/L (8-55); AST (SGOT) 38 U/L (5-34); Albumin 3.1 g/dL (3.4-4.8); Alkaline Phosphatase 133 U/L (40-110); Anion Gap 14 mmol/L (10-20); BUN (Urea Nitrogen) 73 mg/dL (8.4-25.7); Bilirubin, Total 0.7 mg/dL (0.2-1.2); Calc. Creatinine Clearance 46 mL/min (70-130); Calcium 9.1 mg/dL (7.8-10.44); Carbon Dioxide 27 mmol/L (23-31); Chloride 101 mmol/L (98-107); Estimated GFR 29; Globulin 3.4 g/dL (2.4-3.5); Glucose 116 mg/dL (80-115); Magnesium 2.8 mg/dL (1.6-2.6); Potassium 4.3 mmol/L (3.5-5.1); Protein, Total 6.5 g/dL (5.8-8.1); Sodium 138 mmol/L (136-145)
[2024-07-02] MEDS: Furosemide 40 MG TAB PO SCH (11:02)
[2024-07-02] MEDS: Spironolactone 100 MG TAB PO SCH (11:02)
[2024-07-02] MEDS: Lactulose 20 GM (30 mL) UDCUP PO SCH (11:04)
[2024-07-02 15:52] VITALS: BMI 32.8
[2024-07-03 03:22] LABS: #Basophils 0.03 10x3/uL (0.0-0.2); %Basophils 0.5 % (0.0-1.0); %Eosinophils 1.9 % (0.0-10.0); %Lymphocytes 4.5 % (21.0-51.0); %Monocytes 15.5 % (0.0-10.0); %Neutrophils 77.1 % (42.0-75.0); Hematocrit 29.9 % (42.0-52.0); Hemoglobin 9.5 g/dL (14.0-18.0); Mean Corpuscular HGB CONC 31.8 g/dL (32.0-36.0); Mean Corpuscular Hemoglobin 31.5 pg (27.0-31.0); Mean Platelet Volume 12.5 fL (7.4-10.4); Platelet Count 77 10x3/uL (130-400); Red Blood Cell (RBC) Count 3.02 mill/uL (4.70-6.10)
[2024-07-03 03:43] LABS: ALT (SGPT) 41 U/L (8-55); AST (SGOT) 66 U/L (5-34); Albumin 3.2 g/dL (3.4-4.8); Alkaline Phosphatase 156 U/L (40-110); Anion Gap 16 mmol/L (10-20); Anisocytosis SLIGHT = 6-15 cells HPF (0-5); BUN (Urea Nitrogen) 67 mg/dL (8.4-25.7); Bilirubin, Total 0.8 mg/dL (0.2-1.2); Calc. Creatinine Clearance 43 mL/min (70-130); Calcium 9.3 mg/dL (7.8-10.44); Carbon Dioxide 26 mmol/L (23-31); Chloride 102 mmol/L (98-107); Estimated GFR 27; Globulin 3.6 g/dL (2.4-3.5); Glucose 178 mg/dL (80-115); Hypochromia SLIGHT = 6-15 cells HPF (0-5); Magnesium 2.9 mg/dL (1.6-2.6); Platelet Adequacy Comment Platelets Decreased; Polychromasia MODERATE = 3-4 cells HPF (0-2); Potassium 4.8 mmol/L (3.5-5.1); Protein, Total 6.8 g/dL (5.8-8.1); Schistocytes SLIGHT = 2-5 cells HPF (0-1); Sodium 139 mmol/L (136-145); Tear Drops SLIGHT = 2-5 cells HPF (0-1)
[2024-07-03] MEDS: Saxagliptin 2.5 MG TAB PO SCH (11:06)
[2024-07-03] MEDS: Insulin Lispro 100 UNIT/ML 10 ML VIAL SC PRN (22:08)
[2024-07-04 09:35] LABS: #Basophils Less than 0.03 10x3/uL (0.0-0.2); %Basophils 0.4 % (0.0-1.0); %Eosinophils 3.7 % (0.0-10.0); %Lymphocytes 6.3 % (21.0-51.0); %Monocytes 13.8 % (0.0-10.0); %Neutrophils 75.2 % (42.0-75.0); Hematocrit 27.3 % (42.0-52.0); Hemoglobin 8.4 g/dL (14.0-18.0); Mean Corpuscular HGB CONC 30.8 g/dL (32.0-36.0); Mean Corpuscular Hemoglobin 30.5 pg (27.0-31.0); Mean Corpuscular Volume 99.3 fL (78.0-98.0); Mean Platelet Volume 11.3 fL (7.4-10.4); Platelet Count 66 10x3/uL (130-400); RBC Distribution Width 15.7 % (11.5-14.5); Red Blood Cell (RBC) Count 2.75 mill/uL (4.70-6.10)
[2024-07-04 09:38] LABS: ALT (SGPT) 36 U/L (8-55); AST (SGOT) 51 U/L (5-34); Albumin 2.8 g/dL (3.4-4.8); Alkaline Phosphatase 134 U/L (40-110); Anion Gap 13 mmol/L (10-20); BUN (Urea Nitrogen) 64 mg/dL (8.4-25.7); Bilirubin, Total 0.7 mg/dL (0.2-1.2); Calc. Creatinine Clearance 49 mL/min (70-130); Calcium 8.7 mg/dL (7.8-10.44); Carbon Dioxide 25 mmol/L (23-31); Chloride 101 mmol/L (98-107); Estimated GFR 32; Globulin 3.3 g/dL (2.4-3.5); Glucose 214 mg/dL (80-115); Potassium 4.5 mmol/L (3.5-5.1); Protein, Total 6.1 g/dL (5.8-8.1); Sodium 134 mmol/L (136-145)
[2024-07-04 10:01] LABS: Platelet Adequacy Comment Platelets Decreased; Polychromasia SLIGHT = 2-3 cells HPF (0-2)
[2024-07-04] MEDS: Midodrine HCl 5 MG TAB PO SCH (20:40)
[2024-07-05 11:04] LABS: Calc. Creatinine Clearance 53 mL/min (70-130); Estimated GFR 35
[2024-07-05 11:05] LABS: Anion Gap 13 mmol/L (10-20); BUN (Urea Nitrogen) 58 mg/dL (8.4-25.7); Calcium 8.7 mg/dL (7.8-10.44); Carbon Dioxide 24 mmol/L (23-31); Chloride 100 mmol/L (98-107); Glucose 153 mg/dL (80-115); Potassium 4.5 mmol/L (3.5-5.1); Sodium 132 mmol/L (136-145)
[2024-07-05 12:59] VITALS: BP 118/54; TEMP 97.2
== END 2024-07-05 16:33 | DRG 100 ==
LOC: ERS 15:39 → ERHOLD 21:25 → OBSVTOIN 22:23 → 2SE 07-01 15:55
PROVIDERS: ADMIT Student in an Organized Health Care Education/Training Program; ATTEND Internal Medicine
PROC: XX20X89 Monitoring of Brain Electrical Activity, Computer-aided Detection and Notification, New Technology Group 9 (ICD-10-PCS; principal; 2024-07-01)
DX: G40.802 Other epilepsy, not intractable, without status epilepticus (principal); G93.41 Metabolic encephalopathy; J94.8 Other specified pleural conditions; N18.4 Chronic kidney disease, stage 4 (severe); N17.9 Acute kidney failure, unspecified; K75.81 Nonalcoholic steatohepatitis (NASH); K74.69 Other cirrhosis of liver; I12.9 Hypertensive chronic kidney disease with stage 1 through stage 4 chronic kidney disease, or unspecified chronic kidney disease; E11.9 Type 2 diabetes mellitus without complications; K76.82 Hepatic encephalopathy; K72.90 Hepatic failure, unspecified without coma; R53.81 Other malaise; I25.10 Atherosclerotic heart disease of native coronary artery without angina pectoris; D69.6 Thrombocytopenia, unspecified; R53.1 Weakness; D63.1 Anemia in chronic kidney disease; Z95.1 Presence of aortocoronary bypass graft; Z79.4 Long term (current) use of insulin; Z79.899 Other long term (current) drug therapy; Z88.8 Allergy status to other drugs, medicaments and biological substances; Z91.81 History of falling
CPT/HCPCS: 36415; 36416; 70450; 70551; 71045; 80048; 80053; 80306; 80307; 81001; 82010; 82140; 82805; 83690; 83735; 84100; 84443; 84484; 85025; 93005; 94760; 96374; 96375; J1815; J1953; J2060

== ENCOUNTER 2025-02-11 00:15 | Inpatient (IN) | payer MEDICARE, OTHER ==
[2025-02-11] MEDS ORDERED: Ondansetron PF 4 MG/2 ML Vial ONE (01:11)
[2025-02-11] MEDS ORDERED: Pantoprazole 40 MG VIAL ONE (01:11)
[2025-02-11] MEDS ORDERED: Lidocaine/Transparent Dressing 1 EACH KIT ONE (01:12)
[2025-02-11] MEDS ORDERED: Octreotide Acetate 1,250 MCG in Sodium Chloride 0.9% 250 ML 250 ML IVPB SCH ×2 (01:45→13:53)
[2025-02-11 02:02] LABS: ALT (SGPT) 22 U/L (Less than 45); AST (SGOT) 48 U/L (11-34); Albumin 2.6 g/dL (3.1-4.5); Alkaline Phosphatase 107 U/L (40-110); Anion Gap 20 mmol/L (10-20); BUN (Urea Nitrogen) 36 mg/dL (8.4-25.7); Bilirubin, Total 0.8 mg/dL (0.3-1.2); Calc. Creatinine Clearance 0 mL/min (70-130); Calcium 8.2 mg/dL (7.8-10.44); Carbon Dioxide 22 mmol/L (23-31); Chloride 100 mmol/L (98-107); Globulin 3.0 g/dL (2.4-3.5); Glucose 205 mg/dL (80-115); Lipase 44 U/L (8-78); Potassium 5.0 mmol/L (3.5-5.1); Sodium 137 mmol/L (136-145)
[2025-02-11 02:04] LABS: #Basophils 0.04 10x3/uL (0.0-0.2); #Eosinophils 0.03 10x3/uL (0.0-0.7); #Monocytes 1.05 10x3/uL (0.11-0.59); #Neutrophils 7.95 10x3/uL (1.40-6.50); %Basophils 0.4 % (0.0-1.0); %Eosinophils 0.3 % (0.0-10.0); %Lymphocytes 3.2 % (21.0-51.0); %Monocytes 11.1 % (0.0-10.0); %Neutrophils 83.9 % (42.0-75.0); Hematocrit 30.0 % (42.0-52.0); Hemoglobin 9.3 g/dL (14.0-18.0); Mean Corpuscular Hemoglobin 30.2 pg (27.0-31.0); Mean Corpuscular Volume 97.4 fL (78.0-98.0); Platelet Count 115 10x3/uL (130-400); Red Blood Cell (RBC) Count 3.08 mill/uL (4.70-6.10); White Blood Cell (WBC) Count 9.47 10x3/uL (4.8-10.8)
[2025-02-11 03:24] VITALS: BMI 37.5
[2025-02-11 05:29] LABS: #Basophils 0.05 10x3/uL (0.0-0.2); #Eosinophils Less than 0.03 10x3/uL (0.0-0.7); #Monocytes 1.56 10x3/uL (0.11-0.59); #Neutrophils 10.95 10x3/uL (1.40-6.50); %Basophils 0.4 % (0.0-1.0); %Eosinophils 0.1 % (0.0-10.0); %Lymphocytes 6.3 % (21.0-51.0); %Monocytes 11.5 % (0.0-10.0); %Neutrophils 80.4 % (42.0-75.0); Hematocrit 24.1 % (42.0-52.0); Hemoglobin 7.3 g/dL (14.0-18.0); Mean Corpuscular Hemoglobin 30.7 pg (27.0-31.0); Mean Corpuscular Volume 101.3 fL (78.0-98.0); Platelet Count 146 10x3/uL (130-400); Red Blood Cell (RBC) Count 2.38 mill/uL (4.70-6.10); White Blood Cell (WBC) Count 13.62 10x3/uL (4.8-10.8)
[2025-02-11 07:48] LABS: Hematocrit 25.4 % (42.0-52.0); Hemoglobin 7.7 g/dL (14.0-18.0); Mean Corpuscular Hemoglobin 30.7 pg (27.0-31.0); Mean Corpuscular Volume 101.2 fL (78.0-98.0); Platelet Count 174 10x3/uL (130-400); Platelet Count 179 10x3/uL (130-400); Red Blood Cell (RBC) Count 2.51 mill/uL (4.70-6.10); White Blood Cell (WBC) Count 22.70 10x3/uL (4.8-10.8)
[2025-02-11 08:11] LABS: Fibrinogen 263 mg/dL (253-463)
[2025-02-11 08:12] LABS: D-Dimer Test 3.17 mcg/mL (0.27-0.43); INR-International Normal Ratio 1.7; PTT 32.9 sec (22.9-36.1); Prothrombin Time 20.2 sec (12.0-14.7)
[2025-02-11] MEDS ORDERED: Gabapentin 100 MG CAP PO SCH (09:00)
[2025-02-11] MEDS ORDERED: levETIRAcetam 500 MG TAB PO SCH (09:00)
[2025-02-11] MEDS ORDERED: Furosemide 40 MG TAB PO SCH (09:00)
[2025-02-11] MEDS ORDERED: cefTRIAXone (ROCEPHIN) 1 GM VIAL ONE (10:06)
[2025-02-11] MEDS: cefTRIAXone\\ROCEPHIN 1 GM in Sodium Chloride 0.9% 100 ML IVPB SCH (10:10)
[2025-02-11] MEDS: levETIRAcetam 500 MG (5 mL) VIAL SLOW IVP SCH ×3 (10:29→20:07)
[2025-02-11] MEDS ORDERED: SUCCINYLCHOLINE/SOD CL,ISO/PF 200 MG/10 ML SYRINGE FS ONE ×2 (10:34)
[2025-02-11] MEDS ORDERED: PROPOFOL 20 ML ONE (10:34)
[2025-02-11] MEDS: Pantoprazole 80 MG, Admixture Fee 1 EACH in Sodium Chloride 0.9% 100 ML IVPB SCH (10:43)
[2025-02-11] MEDS ORDERED: PHENYLEPHRINE-NS 100 MCG/ML 10 ML SYRINGE ONE (11:17)
[2025-02-11] MEDS ORDERED: Rocuronium Bromide 10 MG/ML (10ML VIAL) ONE (11:17)
[2025-02-11] MEDS ORDERED: Dextrose 50% Abboject 50 ML SYRINGE SLOW IVP PRN (13:04)
[2025-02-11] MEDS ORDERED: Glucagon 1 MG/ML KIT IM PRN (13:04)
[2025-02-11 13:18] LABS: Actual Bicarbonate (HCO3a) 17.5 mEq/L (22-28); Base Excess (BEa) -14.1 mEq/L (-2.0 to +3.0); Calcium, Ionized (arterial) 1.12 mmol/L (1.12-1.30); Hematocrit-ABG 39 % (42.0-52.0); Hemoglobin (Hb) 13.3 g/dL (14.0-18.0)
[2025-02-11 13:23] LABS: CO2 Tension 68.7 mmHg (35.0-45.0); pH, Arterial 7.024 (7.35-7.45)
[2025-02-11 13:25] LABS: O2 Tension (PaO2), arterial 30.2 mmHg (> 80.0)
[2025-02-11 13:26] LABS: ALV-art Gradient 169.125 mmHg (0-20); Potassium - ABG Lab 6.28 mmol/L (3.70-5.30); Puncture Site Arterial Line
[2025-02-11] MEDS: Sodium Bicarb 50 MEQ/50 ML Abboject 8.4% SYRINGE IVP SCH (13:28)
[2025-02-11] MEDS: Calcium Chloride 1 GM/10 ML Abboject SYRINGE IVP SCH (13:30)
[2025-02-11] MEDS ORDERED: Dextrose 50% Abboject 50 ML SYRINGE SLOW IVP SCH (13:30)
[2025-02-11 13:49] LABS: Hematocrit 38.3 % (42.0-52.0); Hemoglobin 12.0 g/dL (14.0-18.0); Mean Corpuscular Hemoglobin 29.6 pg (27.0-31.0); Mean Corpuscular Volume 94.3 fL (78.0-98.0); Platelet Count 168 10x3/uL (130-400); Red Blood Cell (RBC) Count 4.06 mill/uL (4.70-6.10); White Blood Cell (WBC) Count 26.32 10x3/uL (4.8-10.8)
[2025-02-11] MEDS: Vasopressin In 0.9 % NaCl 100 ML ONE (13:58)
[2025-02-11] MEDS: Hydrocortisone Sod Succ/PF 100 mg/2 ml Vial ONE (13:58)
[2025-02-11] MEDS: Sodium Bicarb 50 MEQ/50 ML Abboject 8.4% SYRINGE ONE (13:58)
[2025-02-11] MEDS ORDERED: Fentanyl BOLUS 100 ML IVPB PRN (14:00)
[2025-02-11] MEDS ORDERED: Propofol BOLUS 1,000 MG/100 ML VIAL IV PRN (14:00)
[2025-02-11] MEDS: Ventilator Sedation Protocol 1 EACH FS ONE (14:03)
[2025-02-11] MEDS: Magnesium Oxide 400 MG TAB PO SCH (14:04)
[2025-02-11] MEDS: Cholecalciferol 1,000 UNITS (25 MCG) TAB PO SCH (14:04)
[2025-02-11] MEDS: Lactulose 20 GM (30 mL) UDCUP PO SCH (14:04)
[2025-02-11] MEDS: Multivitamin w/Zinc Stress 1 TAB PO SCH (14:05)
[2025-02-11] MEDS: Multivitamin W/ Minerals 1 TAB PO SCH (14:05)
[2025-02-11] MEDS: Insulin Glargine 30 UNITS/0.3 ML VIAL SC SCH ×2 (14:05→23:30)
[2025-02-11] MEDS: Rifaximin 550 MG TAB PO SCH (14:05)
[2025-02-11] MEDS: Calcium Chloride 1 GM/10 ML Abboject SYRINGE ONE (14:06)
[2025-02-11 14:10] LABS: Anisocytosis MODERATE=16-30 cells HPF (0-5); Burr Cells MODERATE= 6-15 cells HPF (0-1); Macrocytosis SLIGHT = 6-15 cells HPF (0-5); Platelet Adequacy Comment Platelets Normal; Poikilocytosis MODERATE=16-30 cells HPF (0-5); Polychromasia SLIGHT = 2-3 cells HPF (0-2); Smudge Cells 4.0 %
[2025-02-11] MEDS: Hydrocortisone Sod Succ/PF 100 mg/2 ml Vial IVP SCH ×2 (14:47→20:07)
[2025-02-11 15:04] LABS: ALT (SGPT) 60 U/L (Less than 45); AST (SGOT) 124 U/L (11-34); Albumin 2.5 g/dL (3.1-4.5); Alkaline Phosphatase 70 U/L (40-110); Anion Gap 27 mmol/L (10-20); BUN (Urea Nitrogen) 43 mg/dL (8.4-25.7); Bilirubin, Total 2.4 mg/dL (0.3-1.2); Calc. Creatinine Clearance 38 mL/min (70-130); Calcium 9.4 mg/dL (7.8-10.44); Carbon Dioxide 16 mmol/L (23-31); Chloride 104 mmol/L (98-107); Globulin 2.4 g/dL (2.4-3.5); Glucose 247 mg/dL (80-115); Potassium 6.3 mmol/L (3.5-5.1); Sodium 141 mmol/L (136-145)
[2025-02-11] MEDS: Dextrose 50% Abboject 50 ML SYRINGE SLOW IVP SCH (15:18)
[2025-02-11] MEDS: Octreotide Acetate 1,250 MCG in Sodium Chloride 0.9% 250 ML 250 ML IVPB SCH (17:47)
[2025-02-11 17:57] LABS: Hematocrit 34.5 % (42.0-52.0); Hemoglobin 11.6 g/dL (14.0-18.0); Mean Corpuscular Hemoglobin 29.5 pg (27.0-31.0); Mean Corpuscular Volume 87.8 fL (78.0-98.0); Platelet Count 147 10x3/uL (130-400); Red Blood Cell (RBC) Count 3.93 mill/uL (4.70-6.10); White Blood Cell (WBC) Count 35.86 10x3/uL (4.8-10.8)
[2025-02-11 20:06] LABS: Anisocytosis SLIGHT = 6-15 cells HPF (0-5); Burr Cells SLIGHT = 2-5 cells HPF (0-1); Macrocytosis SLIGHT = 6-15 cells HPF (0-5); Nucleated RBC (Manual Ct) 1 % (0); Ovalocytes SLIGHT = 2-5 cells HPF (0-1); Platelet Adequacy Comment Platelets Normal; Polychromasia SLIGHT = 2-3 cells HPF (0-2); Smudge Cells 3.9 %
[2025-02-11] MEDS: Pantoprazole 40 MG VIAL IVP SCH (20:07)
[2025-02-11 20:39] LABS: Hematocrit 35.0 % (42.0-52.0); Hemoglobin 11.7 g/dL (14.0-18.0); Mean Corpuscular Hemoglobin 29.3 pg (27.0-31.0); Mean Corpuscular Volume 87.5 fL (78.0-98.0); Platelet Count 155 10x3/uL (130-400); Red Blood Cell (RBC) Count 4.00 mill/uL (4.70-6.10); White Blood Cell (WBC) Count 35.16 10x3/uL (4.8-10.8)
[2025-02-11 20:59] LABS: Burr Cells SLIGHT = 2-5 cells HPF (0-1); Platelet Adequacy Comment Platelets Normal; Polychromasia SLIGHT = 2-3 cells HPF (0-2); Smudge Cells 2.0 %
[2025-02-11 21:05] LABS: ALT (SGPT) 188 U/L (Less than 45); AST (SGOT) 382 U/L (11-34); Albumin 2.5 g/dL (3.1-4.5); Alkaline Phosphatase 70 U/L (40-110); Anion Gap 23 mmol/L (10-20); BUN (Urea Nitrogen) 51 mg/dL (8.4-25.7); Bilirubin, Total 3.3 mg/dL (0.3-1.2); Calc. Creatinine Clearance 35 mL/min (70-130); Calcium 8.8 mg/dL (7.8-10.44); Carbon Dioxide 19 mmol/L (23-31); Chloride 101 mmol/L (98-107); Globulin 2.4 g/dL (2.4-3.5); Glucose 422 mg/dL (80-115); Potassium 6.5 mmol/L (3.5-5.1); Sodium 136 mmol/L (136-145)
[2025-02-11] MEDS: NOREPINEPHRINE 8 MG/250 ML-D5W 250 ML IVPB SCH (22:55)
[2025-02-12 00:56] LABS: Hematocrit 34.1 % (42.0-52.0); Hemoglobin 11.7 g/dL (14.0-18.0); Mean Corpuscular Hemoglobin 29.8 pg (27.0-31.0); Mean Corpuscular Volume 86.8 fL (78.0-98.0); Platelet Count 152 10x3/uL (130-400); Red Blood Cell (RBC) Count 3.93 mill/uL (4.70-6.10); White Blood Cell (WBC) Count 32.57 10x3/uL (4.8-10.8)
[2025-02-12] MEDS: Vasopressin In 0.9 % NaCl 100 ML IV SCH (01:45)
[2025-02-12 03:07] LABS: Burr Cells SLIGHT = 2-5 cells HPF (0-1); Platelet Adequacy Comment Platelets Normal; Polychromasia SLIGHT = 2-3 cells HPF (0-2); Smudge Cells 3.0 %
[2025-02-12 04:48] LABS: INR-International Normal Ratio 1.6; PTT 32.4 sec (22.9-36.1); Prothrombin Time 19.4 sec (12.0-14.7)
[2025-02-12 05:00] LABS: ALT (SGPT) 400 U/L (Less than 45); AST (SGOT) 743 U/L (11-34); Albumin 2.4 g/dL (3.1-4.5); Alkaline Phosphatase 78 U/L (40-110); Anion Gap 18 mmol/L (10-20); BUN (Urea Nitrogen) 55 mg/dL (8.4-25.7); Bilirubin, Total 2.1 mg/dL (0.3-1.2); Calc. Creatinine Clearance 34 mL/min (70-130); Calcium 8.5 mg/dL (7.8-10.44); Carbon Dioxide 22 mmol/L (23-31); Chloride 101 mmol/L (98-107); Globulin 2.4 g/dL (2.4-3.5); Glucose 453 mg/dL (80-115); Potassium 5.9 mmol/L (3.5-5.1); Sodium 135 mmol/L (136-145)
[2025-02-12 05:26] LABS: Hematocrit 32.7 % (42.0-52.0); Hemoglobin 11.3 g/dL (14.0-18.0); Mean Corpuscular Hemoglobin 29.7 pg (27.0-31.0); Mean Corpuscular Volume 85.8 fL (78.0-98.0); Platelet Count 130 10x3/uL (130-400); Red Blood Cell (RBC) Count 3.81 mill/uL (4.70-6.10); White Blood Cell (WBC) Count 30.88 10x3/uL (4.8-10.8)
[2025-02-12 07:17] LABS: Platelet Adequacy Comment Platelets Normal; RBC Morphology Within Normal Limits; Smudge Cells 1.0 %
[2025-02-12 08:02] LABS: Actual Bicarbonate (HCO3a) 22.5 mEq/L (22-28); Base Excess (BEa) 0.8 mEq/L (-2.0 to +3.0); CO2 Tension 27.7 mmHg (35.0-45.0); Calcium, Ionized (arterial) 1.09 mmol/L (1.12-1.30); Hematocrit-ABG 35 % (42.0-52.0); Hemoglobin (Hb) 12.0 g/dL (14.0-18.0); O2 Tension (PaO2), arterial 85.8 mmHg (> 80.0); Potassium - ABG Lab 5.36 mmol/L (3.70-5.30); pH, Arterial 7.528 (7.35-7.45)
[2025-02-12 08:08] LABS: ALV-art Gradient 307.375 mmHg (0-20); Puncture Site Arterial Line
[2025-02-12 09:00] LABS: Hematocrit 31.7 % (42.0-52.0); Hemoglobin 11.1 g/dL (14.0-18.0); Mean Corpuscular Hemoglobin 29.8 pg (27.0-31.0); Mean Corpuscular Volume 85.2 fL (78.0-98.0); Platelet Count 128 10x3/uL (130-400); Red Blood Cell (RBC) Count 3.72 mill/uL (4.70-6.10); White Blood Cell (WBC) Count 31.47 10x3/uL (4.8-10.8)
[2025-02-12] MEDS ORDERED: Furosemide 40 MG TAB PO SCH (09:00)
[2025-02-12] MEDS: INSULIN REGULAR IN 0.9 % NACL 100 ML IVPB SCH (10:31)
[2025-02-12 10:41] LABS: Anisocytosis SLIGHT = 6-15 cells HPF (0-5); Platelet Adequacy Comment Platelets Decreased; Polychromasia MODERATE = 3-4 cells HPF (0-2); Smudge Cells 2.0 %; Toxic Granulation SLIGHT
[2025-02-12 10:47] LABS: Glucose 398 mg/dL (80-115)
[2025-02-12 12:30] LABS: Glucose 341 mg/dL (80-115)
[2025-02-12 13:37] VITALS: BMI 37.5
[2025-02-12 14:19] LABS: Glucose 316 mg/dL (80-115)
[2025-02-12 14:27] LABS: ALT (SGPT) 480 U/L (Less than 45); AST (SGOT) 627 U/L (11-34); Albumin 2.5 g/dL (3.1-4.5); Alkaline Phosphatase 83 U/L (40-110); Anion Gap 15 mmol/L (10-20); BUN (Urea Nitrogen) 64 mg/dL (8.4-25.7); Bilirubin, Total 1.2 mg/dL (0.3-1.2); Calc. Creatinine Clearance 33 mL/min (70-130); Calcium 8.5 mg/dL (7.8-10.44); Carbon Dioxide 28 mmol/L (23-31); Chloride 100 mmol/L (98-107); Globulin 2.5 g/dL (2.4-3.5); Glucose 269 mg/dL (80-115); Potassium 5.2 mmol/L (3.5-5.1); Sodium 138 mmol/L (136-145)
[2025-02-12 15:27] LABS: Glucose 225 mg/dL (80-115)
[2025-02-12 16:44] LABS: Glucose 174 mg/dL (80-115)
[2025-02-12 17:28] LABS: Glucose 132 mg/dL (80-115)
[2025-02-12 18:34] LABS: Glucose 119 mg/dL (80-115)
[2025-02-12 19:32] LABS: Glucose 145 mg/dL (80-115)
[2025-02-12] MEDS: Hydrocortisone Sod Succ/PF 100 mg/2 ml Vial IVP SCH (21:21)
[2025-02-13 03:21] LABS: #Basophils 0.04 10x3/uL (0.0-0.2); #Eosinophils Less than 0.03 10x3/uL (0.0-0.7); #Monocytes 3.68 10x3/uL (0.11-0.59); #Neutrophils 24.60 10x3/uL (1.40-6.50); %Basophils 0.1 % (0.0-1.0); %Eosinophils 0.0 % (0.0-10.0); %Lymphocytes 2.2 % (21.0-51.0); %Monocytes 12.2 % (0.0-10.0); %Neutrophils 81.8 % (42.0-75.0); Hematocrit 29.2 % (42.0-52.0); Hemoglobin 9.8 g/dL (14.0-18.0); Mean Corpuscular Hemoglobin 29.7 pg (27.0-31.0); Mean Corpuscular Volume 88.5 fL (78.0-98.0); Platelet Count 90 10x3/uL (130-400); Red Blood Cell (RBC) Count 3.30 mill/uL (4.70-6.10); White Blood Cell (WBC) Count 30.09 10x3/uL (4.8-10.8)
[2025-02-13 03:35] LABS: ALT (SGPT) 420 U/L (Less than 45); AST (SGOT) 443 U/L (11-34); Albumin 2.3 g/dL (3.1-4.5); Alkaline Phosphatase 81 U/L (40-110); Anion Gap 18 mmol/L (10-20); BUN (Urea Nitrogen) 72 mg/dL (8.4-25.7); Bilirubin, Total 1.3 mg/dL (0.3-1.2); Calc. Creatinine Clearance 30 mL/min (70-130); Calcium 7.9 mg/dL (7.8-10.44); Carbon Dioxide 27 mmol/L (23-31); Chloride 97 mmol/L (98-107); Globulin 2.3 g/dL (2.4-3.5); Glucose 158 mg/dL (80-115); Potassium 5.3 mmol/L (3.5-5.1); Sodium 137 mmol/L (136-145)
[2025-02-13 03:39] LABS: Anisocytosis SLIGHT = 6-15 cells HPF (0-5); Nucleated RBC (Manual Ct) 1 % (0); Platelet Adequacy Comment Platelets Normal; Polychromasia SLIGHT = 2-3 cells HPF (0-2)
[2025-02-13 08:19] LABS: Actual Bicarbonate (HCO3a) 29.0 mEq/L (22-28); Base Excess (BEa) 5.9 mEq/L (-2.0 to +3.0); CO2 Tension 36.5 mmHg (35.0-45.0); Calcium, Ionized (arterial) 1.03 mmol/L (1.12-1.30); Hematocrit-ABG 31 % (42.0-52.0); Hemoglobin (Hb) 10.5 g/dL (14.0-18.0); O2 Tension (PaO2), arterial 63.2 mmHg (> 80.0); Potassium - ABG Lab 5.01 mmol/L (3.70-5.30); pH, Arterial 7.518 (7.35-7.45)
[2025-02-13 08:54] LABS: ALV-art Gradient 318.975 mmHg (0-20); Puncture Site Arterial Line
[2025-02-13 09:23] LABS: Hematocrit 28.3 % (42.0-52.0); Hemoglobin 9.4 g/dL (14.0-18.0); Platelet Count 71 10x3/uL (130-400)
[2025-02-13 18:22] LABS: Anion Gap 18 mmol/L (10-20); BUN (Urea Nitrogen) 84 mg/dL (8.4-25.7); Calc. Creatinine Clearance 32 mL/min (70-130); Calcium 7.6 mg/dL (7.8-10.44); Carbon Dioxide 31 mmol/L (23-31); Chloride 93 mmol/L (98-107); Glucose 178 mg/dL (80-115); Potassium 5.5 mmol/L (3.5-5.1); Sodium 136 mmol/L (136-145)
[2025-02-13 21:13] VITALS: TEMP 98.7
[2025-02-13 21:42] VITALS: BP 162/67
[2025-02-14 00:04] LABS: HBSAB Concentration 85.30 mIU/mL; Hep B Core Total Ab NONREACTIVE (NonReactive); Hep B Core Total Index 0.11 S/CO (0-0.79); Hep B Surf Ag NONREACTIVE S/CO (NonReactive); Hep C IgG Ab NONREACTIVE S/CO (NonReactive); Hep C Index 0.23 S/CO (0-0.79)
== END 2025-02-13 23:14 | disposition short-term general hospital (02) | DRG 432 ==
LOC: ERS 00:15 → ERHOLD 02:23 → CCU 02:41
PROVIDERS: ADMIT Family Medicine; ATTEND Internal Medicine
PROC: 4A03XR1 Measurement of Arterial Saturation, Peripheral, External Approach (ICD-10-PCS; principal; 2025-02-11)
PROC: 0DJ08ZZ Inspection of Upper Intestinal Tract, Via Natural or Artificial Opening Endoscopic (ICD-10-PCS; 2025-02-11)
PROC: 0BH17EZ Insertion of Endotracheal Airway into Trachea, Via Natural or Artificial Opening (ICD-10-PCS; 2025-02-11)
PROC: 5A1945Z Respiratory Ventilation, 24-96 Consecutive Hours (ICD-10-PCS; 2025-02-11)
PROC: 30233J1 Transfusion of Nonautologous Serum Albumin into Peripheral Vein, Percutaneous Approach (ICD-10-PCS; 2025-02-11)
PROC: 30233L1 Transfusion of Nonautologous Fresh Plasma into Peripheral Vein, Percutaneous Approach (ICD-10-PCS; 2025-02-11)
PROC: 30233N1 Transfusion of Nonautologous Red Blood Cells into Peripheral Vein, Percutaneous Approach (ICD-10-PCS; 2025-02-11)
PROC: 30233R1 Transfusion of Nonautologous Platelets into Peripheral Vein, Percutaneous Approach (ICD-10-PCS; 2025-02-11)
PROC: 30233M1 Transfusion of Nonautologous Plasma Cryoprecipitate into Peripheral Vein, Percutaneous Approach (ICD-10-PCS; 2025-02-11)
PROC: 02HV33Z Insertion of Infusion Device into Superior Vena Cava, Percutaneous Approach (ICD-10-PCS; 2025-02-13)
DX: K74.60 Unspecified cirrhosis of liver (principal); I85.01 Esophageal varices with bleeding; J96.01 Acute respiratory failure with hypoxia; R57.8 Other shock; J96.02 Acute respiratory failure with hypercapnia; N17.9 Acute kidney failure, unspecified; E87.20 Acidosis, unspecified; I25.10 Atherosclerotic heart disease of native coronary artery without angina pectoris; D64.9 Anemia, unspecified; K72.10 Chronic hepatic failure without coma; E87.5 Hyperkalemia; E11.65 Type 2 diabetes mellitus with hyperglycemia; K31.819 Angiodysplasia of stomach and duodenum without bleeding; Z95.1 Presence of aortocoronary bypass graft; Z98.890 Other specified postprocedural states; Z82.3 Family history of stroke; Z88.8 Allergy status to other drugs, medicaments and biological substances; Z82.49 Family history of ischemic heart disease and other diseases of the circulatory system; Z79.899 Other long term (current) drug therapy
CPT/HCPCS: 36415; 36416; 36430; 71045; 80053; 82805; 83036; 83690; 85025; 85049; 85300; 85362; 85384; 85610; 85730; 86704; 86706; 86803; 86850; 86900; 86901; 87340; 93005; 93010; 94002; 94003; 96365; 96375; 96376; A4217; C1751; J0696; J1720; J1815; J1953; J2060; J2250; J2354; J2405; J2470; J2704; J7050; J7070; J7999; P9012; P9016; P9035; P9047; P9048; P9059